=== PATIENT | female | born 1935 | race African-American/Black ===

== ENCOUNTER 2017-10-03 13:39 | Inpatient (IN) | payer MEDICARE, BC ==
[2017-10-03 14:12] LABS: #Basophils 0.1 thou/uL (0.0-0.2); #Eosinphils 0.2 thou/uL (0.0-0.7); #Lymphocytes 2.5 thou/uL (1.20-3.40); #Monocytes 0.5 thou/uL (0.11-0.59); %Basophils 1.7 % (0.0-1.0); %Eosinophils 2.5 % (0.0-10.0); %Lymphocytes 39.9 % (21.0-51.0); %Neutrophils 47.9 % (42.0-75.0); Hemoglobin 11.2 g/dL (12.0-16.0); Mean Corpuscular HGB CONC 31.5 g/dL (32.0-36.0); Mean Corpuscular Hemoglobin 24.1 pg (27.0-31.0); Mean Corpuscular Volume 76.6 fl (81.0-99.0); Mean Platelet Volume 8.7 fL (7.4-10.4); Platelet Count 227 thou/uL (130-400); RBC Distribution Width 14.9 % (11.5-14.5); Red Blood Cell (RBC) Count 4.63 mill/uL (4.20-5.40); White Blood Cell (WBC) Count 6.4 thou/uL (4.8-10.8)
[2017-10-03 14:20] LABS: INR-International Normal Ratio 1.1; PTT 30.4 SEC (22.9-36.1); Prothrombin Time 14.8 SEC (12.0-14.7)
[2017-10-03 14:26] LABS: ALT (SGPT) 15 U/L (8-55); AST (SGOT) 18 U/L (5-34); Albumin 3.6 g/dL (3.4-4.8); Alkaline Phosphatase 78 U/L (40-150); Anion Gap 11 mmol/L (10-20); BUN (Urea Nitrogen) 9 mg/dL (9.8-20.1); Bilirubin, Total 0.5 mg/dL (0.2-1.2); Calc. Creatinine Clearance 0 mL/min (70-130); Calcium 9.4 mg/dL (7.8-10.44); Carbon Dioxide 27 mmol/L (23-31); Chloride 107 mmol/L (98-107); Estimated GFR-MDRD 72; Glucose 135 mg/dL (83-110); Lipase 6 U/L (8-78); Potassium 3.5 mmol/L (3.5-5.1); Protein, Total 6.6 g/dL (6.0-8.3); Sodium 141 mmol/L (136-145)
--- NOTE | 2017-10-03 14:35 | CT ---
NONCONTRAST CT HEAD: Date: 10-03-17 History: Patient fell down flight of stairs and hit head and face on a wall. Patient unconscious upon EMS arrival. Comparison: 12-05-16 FINDINGS: Again noted is mild chronic small vessel ischemic changes and cerebral volume loss. There is a low de nsity area seen in the inferior aspect left basal ganglia which is probably related to volume averagi ng as opposed to a remote infarction or dilated perivascular space. There is no evidence of an acute cortical infarction, hemorrhage, mass effect, or midline shift. Ventricular system is normal in size, shape, and position. No calvarial fracture is seen. Mucosal thickening is present in the left maxillary antrum with mucous retention cyst in the right ma xillary antrum. IMPRESSION: No acute intracranial abnormalities demonstrated. POS: [facility]
--- NOTE | 2017-10-03 14:40 | CT ---
NONCONTRAST CT CERVICAL SPINE: Date: 10-03-17 History: Patient fell down a flight of stairs from a height of approximately 12 feet and hit face and head against wall. Patient was unconscious upon EMS arrival. Technique: Contiguous axial CT images are obtained through the cervical spine from the skull base to the T1-2 level. Sagittal and coronal reformat images are provided. FINDINGS: Multilevel degenerative changes are seen in the cervical spine with narrowing of the intervertebral d isc spaces at the C3-4, C4-5, and C5-6 levels. There is posterior osteophyte formation also present a t these levels resulting in moderate left and severe right sided neural foraminal narrowing at the C3 -4 level, moderate left sided neural foraminal narrowing at the C4-5 level as well as moderate bilate ral neural foraminal narrowing at the C5-6 level related to bony encroachment. No fracture or subluxation is seen involving the cervical spine. The prevertebral soft tissues are within normal limits. Vascular calcifications are seen in the carotid arteries. Visualized lung apices are clear aside from pleural and parenchymal scarring. IMPRESSION: 1. Multilevel degenerative change of the cervical spine without evidence of fracture or subluxation. 2. Above findings discussed with Dr. Johnson from the Emergency Department on 10-03-17 at 1425 hours. F indings concerning CT of the head was also discussed at this time. POS: [facility]
--- NOTE | 2017-10-03 15:18 | CT ---
CT THORAX WITH IV CONTRAST CT ABDOMEN WITH IV CONTRAST CT PELVIS WITH IV CONTRAST CT THORACIC AND LUMBAR SPINE: Date: 10-03-17 History: Patient fell down flight of stairs and hit head on wall with loss of consciousness. Patient complains of back and shoulder pain. FINDINGS: CT THORAX: There is dependent atelectasis bilaterally with linear atelectasis versus scarring in the right middl e lobe. No pneumothorax or pleural effusion is seen. There are nondisplaced fractures involving the left anterolateral 3rd, 4th, and 5th ribs with slight displacement of the fracture involving the left lateral fifth rib. There is questionable subtle nondi splaced fractures of the left lateral 6th and 7th ribs. There are fractures involving the posterior right 11th and 12th ribs. The exact ages of these fractur es are difficult to determine. There is questionable of callus formation. These may represent more re mote fractures. There is a mildly comminuted fracture involving the body and inferior aspect of the left clavicle whi ch is mildly comminuted. There is no evidence of a dislocation left shoulder. There is no evidence of an aortic injury. Vascular calcification seen in the coronary arteries as wel l as involving the thoracic aorta. There is a subcentimeter too small to characterize hypodense nodules in each lobe of the thyroid glan d. CT ABDOMEN AND PELVIS: Post cholecystectomy changes are noted. A few subcentimeter too small to characterize hypodense lesions are seen in the midportion of each ki dney. Kidneys otherwise have a normal CT appearance. The liver, spleen, pancreas, bilateral adrenal glands, and urinary bladder demonstrate a normal CT ap pearance. There is a large heterogeneous mass seen associated with the uterus which measures approximately 6.1 cm x 5.8 cm which may represent a large uterine fibroid. There is an additional irregular calcified m ass also seen just posterior to this region which may represent partially calcified uterine fibroid. There is increased attenuation seen in the expected location of what is thought to be the endometrial canal which is dilated. This is abnormal in a patient of this age. Other etiologies for the mass in the uterus cannot be entirely excluded. Further evaluation with ultrasound is recommended on a non-em ergent basis. There is a 3.4 cm hypodense cystic structure posterior to the uterus as well as a small hypodense cys tic structure in the left adnexal region measuring 2.2 cm which may represent ovarian cystic lesions. There is mild stranding in a presacral location. There is a transverse fracture seen extending throug h the sacrum at the level of the S2 and S3 vertebral bodies with the distal fracture fragment slightl y displaced anteriorly. No additional fracture is seen involving the pelvis. Sacroiliac joints demons trate moderately osteoarthritis but are otherwise symmetric in appearance bilaterally. Patchy calcifications are seen in the abdominal aorta and iliac arteries. There are no findings to gr ggest an aortic injury. No free fluid or free intraperitoneal gas is seen in the abdomen or pelvis. CT THORACIC AND LUMBAR SPINE: There is a mild compression fracture involving the T4 vertebral body which is likely more recent in o rigin although the exact age is difficult to determine. The remaining vertebral body heights are with in normal limits. There are scattered degenerative changes seen, greatest at the lumbosacral junction . IMPRESSION: 1. Heterogeneous mass in the uterus with calcified mass seen posterior to this region as well as an a dditional low density area within the uterus. In addition, there is fluid in the endometrial canal. T his is abnormal in a patient of this age. While findings could be related to uterine fibroids, given the fluid in the endometrial canal, other etiologies for uterine mass such as endometrial carcinoma c annot be excluded. Further evaluation with ultrasound and SALES SUPPORT MANAGER consultation on a non-emergent basis is recommended. 2. Hypodense cystic adnexal structures which may represent ovarian cysts. 3. Fractures involving the left 3rd through 5th ribs with subtle fractures involving the 6th and 7th ribs. 4. Fractures involving the posterior right 11th and 12th ribs which may represent fractures which are more remote in origin. 5. No pneumothorax or pleural effusion. 6. Comminuted fractures involving the left scapula. 7. Mildly displaced and angulated fracture involving the sacrum which involves the S2 and S3 vertebra l bodies. 8. Mild compression fracture of the T4 vertebral body. 9. Mild stranding presacral location. 10. Incidental findings as described. Above findings discussed with Emergency Room physician on 10-03-17 at 1443 hours. POS: [facility]
[2017-10-03] MEDS ORDERED: ISOVUE-370 76%-LOCM 1 ML ONE (16:52)
--- NOTE | 2017-10-03 17:49 | RAD ---
PORTABLE SUPINE CHEST: Date: 10/03/17 HISTORY: Fall. COMPARISON: Chest CT done earlier today. FINDINGS: Heart size appears borderline considering supine technique. The aorta is tortuous. The lungs are linda r of infiltrates. I do not see any signs of pneumothorax on this supine film. Left-sided rib fracture somewhat difficult to visualize. Contrast is seen within the kidneys from the previous CT. IMPRESSION: 1. Mild cardiomegaly. 2. No signs of pneumothorax on this supine film. POS: [facility]
[2017-10-03] MEDS ORDERED: Dextrose 50% Abboject 50 ML SYRINGE SLOW IVP PRN (18:12)
[2017-10-03] MEDS ORDERED: Rib Fracture Protocol PO SCH (18:12)
[2017-10-03] MEDS ORDERED: Dextrose 5% in Water 1,000 ML IV PRN (18:12)
[2017-10-03] MEDS ORDERED: Cyclobenzaprine 10 MG TAB PO PRN (18:15)
[2017-10-03 18:43] LABS: Magnesium 2.2 mg/dL (1.6-2.6)
--- NOTE | 2017-10-03 19:55 | PDOC.EVN ---
Event Note - Event Note Event Note: INSPECTOR HEATING AND REFRIGERATION consultation Patient seen in room 3310 at 1940 Handwritten note also in physical chart. REQUESTED BY DR SANDOVAL Indication: Pelvic CT with suspicion of uterine fibroid and adnexal cyst. HPI: 82 yo AA with past HX uterine fibroids (by her account) fell today down stairs. Pelvic FX found on imaging (Trauma has seen her). She has no HX vaginal bleeding or pelvic pain). x4 Allergies: none Past medical: HX of falls recently with prior evals at [facility] (possible vaso- vagal) Imaging seen Assessment/Plan: asymptomatic uterine mass (likely myoma) with calcification. Trans abdominal pelvic sono ordered to avoid vaginal discomfort with a transvag sono No need for surgical eval at this time as no Vag Bleed Likely follow up as outpatient
[2017-10-03] MEDS: Gabapentin 100 MG CAP PO SCH (22:28)
[2017-10-03] MEDS: Ibuprofen 600 MG TAB PO SCH (22:28)
[2017-10-03] MEDS: Famotidine 20 MG TAB PO SCH (22:28)
--- NOTE | 2017-10-03 23:48 | CON ---
DATE OF CONSULTATION: 10/03/2017 Jeramie Alfaro PA-C dictating for Arturo Larios MD This is a 30-minute initial patient evaluation, which greater than 50% of the exam was spent in couns eling and coordinating patient's care. The remainder of the exam was spent in review of patient's mi dical records and appropriate imaging studies. CHIEF COMPLAINT: Status post fall down 6-7 stairs with T4 compression fracture. HISTORY OF PRESENT ILLNESS: Ms. Carr is a pleasant 82-year-old female who presents to [facility] with the above complaints. Apparently, the patient was carrying some books down from [employer] and slipped, causing her to fall onto her back down the stairs and striking her head. Apparent ly, there was no loss of consciousness. The patient is not on any blood thinners. According to the granddaughter, the patient has had several falls in the past year and they do believe that there may be an underlying memory loss, dementia occurring. The only pain that the patient complains of is lef t scapula and rib pain. She has no neck pain. Review of patient's head CT shows no acute intracrani al hemorrhage or skull fracture. Her cervical spine CT showed stable degenerative spondylitic change s, but otherwise no acute fracture. Review of CT chest, abdomen, and pelvis shows stable T4 compress ion fracture. She also has sacral 2 and sacral 3 fractures that appeared to be nondisplaced. PHYSICAL EXAMINATION: The patient is awake and alert, does sometimes get sleepy during the exam. He r GCS currently is 14 and she does have some confusion, but this may be related to narcotic pain medi cation administration as well as possible concussive syndrome. She is not currently nauseous. She f ollows commands in all 4 extremities, although it is very slow to move the left arm due to her multip le orthopedic injuries on that side. She does have a little bit of difficulty with index finger-to-n ose. Her pupils are equal, round, and reactive and her face is symmetric. She has no pronator drift on the right and this is difficult to assess on the left again due to her injuries. DIAGNOSIS: Anterior column compression fracture, T4 nondisplaced, status post fall. PLAN: Our trauma colleague will admit the patient. From our standpoint, the patient does not requir e any type of neurosurgical intervention at this time. She does need a Clamshell TLSO brace to be wo rn anytime, she is out of bed and once this is fitted, she can mobilize if tolerated. Trauma will co nsult Orthopedics regarding the patient's sacral fractures. Given the fact that there is no intracra nial hemorrhage, I still would like the patient to omit as much narcotic as possible to help with men tation. We will check back on the patient in the morning, but again understand that there is no role for surgical intervention at this point. Please call with any questions or changes in the patient's neurologic status.
--- NOTE | 2017-10-04 00:12 | HP ---
CHIEF COMPLAINT: Fall. HISTORY: This is an 82-year-old female who fell down about 7 to 8 steps in a stairwell, striking her chest and back. She complains of lateral chest wall pain and back pain, no dyspnea. She did have l oss of consciousness. PAST MEDICAL HISTORY: Decreased memory. PAST SURGICAL HISTORY: Laparoscopic cholecystectomy. MEDICATIONS: She is on a probiotic. ALLERGIES: No known drug allergies. SOCIAL HISTORY: She lives with her daughter and son-in-law. No tobacco or alcohol. FAMILY HISTORY: Heart disease. PHYSICAL EXAMINATION: VITAL SIGNS: She is afebrile, pulse 73, blood pressure 113/67, 94% sat. GENERAL: She has slightly confused. She has poor dentition. Her scalp is without lesions. HEENT: Pupils are equal, round, and reactive. Extraocular motor intact. Facial bones intact. NECK: Nontender. Trachea midline. LUNGS: Clear. She is mildly tender over the left clavicle. HEART: Regular rate and rhythm. ABDOMEN: Soft, nondistended, nontender. Pelvis is stable. EXTREMITIES: Unremarkable. IMAGING: She had a CT scan of the head that was normal. CT of C-spine showed degenerative changes, no fractures. CT of the chest, abdomen, and pelvis showed fractured left 3, 4, 5 and probably 6 and 7 ribs and possibly right 11th and 12th ribs. She also has a left clavicle fracture and large mass o f the uterus about 6 x 6 cm with some fluid within the endometrial canal. She also has enlargement o f the ovaries. She has a complex fracture, T4 vertebral body. LABORATORY DATA AND X-RAY FINDINGS: White count is 6.4, H&H 11 and 35, platelet count 227. Electrol ytes are fine. Elevated glucose of 135. ASSESSMENT: Multiple rib fractures, T4 vertebral body fracture, clavicle fracture, and uterine mass. PLAN: CONSULTING SALES MANAGER consult. Admitted for observation.
--- NOTE | 2017-10-04 00:43 | HP ---
DATE OF ADMISSION: 10/03/2017 ADMITTING PHYSICIAN: Dr. Leon Robles. CONSULTING PHYSICIAN: Dr. Marcello Mota, Orthopedics, Dr. Arturo Larios, Neurosurgery, Dr. Jey Muñiz, Gynecology. HISTORY OF PRESENT ILLNESS: Patient is an 82-year-old female who reports that she was ascending the stairway with books in her arm when she slipped and fell backwards down approximately 6-7 stairs landing against the wall. Her family was there with her when she fell and summoned EMS. EMS reported that the patient was unconscious upon their arrival and she regained consciousness en route. The patient complained of back and left shoulder pain. Pain is exacerbated by movement. Pain is relieved by nothing. Patient's family reported to EMS that the patient has had recent syncopal episodes with multiple falls. They also described what they believed to be some sort of progressive dementia. Trauma Services has been consulted to admit and manage patient. Dr. Mota, Orthopedics, has been consulted as well as Dr. Muñiz, CRATING AND MOVING ESTIMATOR, for uterine mass seen on CT scan, and Dr. Larios for spine fractures. PAST MEDICAL HISTORY: There is no past medical history reported by patient or family. PAST SURGICAL HISTORY: Cholecystectomy. SOCIAL HISTORY: Patient lives at home with her granddaughter and family. Denies alcohol, drug or tobacco use. KNOWN ALLERGIES: None. CURRENT MEDICATIONS: None. LABORATORY DATA: CBC: WBC 6.4, RBC 4.63, hemoglobin 11.2, hematocrit 35.5, and platelets 227. Coagulation studies: PT 14.8, INR 1.1. Chemistry: Sodium 141, potassium 3.5, chloride 107, carbon dioxide 27, BUN 9, creatinine 0.9, glucose 135, lactic acid 2.6. DIAGNOSTIC IMAGING: CT chest, abdomen and pelvis identifies multiple left side rib fractures involving left 3rd, 4th, 5th ribs also questionable fractures of 6 and 7th ribs as well as 11th and 12th ribs, left scapula fracture. Uterine mass. S2, S3 vertebral body fractures. A CT thoracic and lumbar spine with T4 vertebral body fractures. REVIEW OF SYSTEMS: Constitutional: The patient denies chills, fever, weight loss or general malaise. HEENT: Negative. Denies complaints. Cardiovascular : Denies chest pain or palpitations. Respiratory: Denies cough, shortness of breath. Gastrointestinal: Denies abdominal pain, diarrhea, nausea, vomiting. Musculoskeletal: Reports left shoulder and upper left back pain. Skin: Denies rash or trauma. Neurologic: Denies headache, seizures, focal weakness or dizziness. PHYSICAL EXAMINATION: VITAL SIGNS: Blood pressure 112/58, pulse 75, respirations 18, temperature 98.5 , O2 sat 94% on 2 liters oxygen. CONSTITUTIONAL: Elderly female lying in bed in no acute distress. HEENT: Atraumatic, normocephalic. Trachea midline. NECK: No JVD. Neck without tenderness. PULMONARY: Bilateral breath sounds clear. Chest movement symmetrical. CARDIOVASCULAR: Regular rate and rhythm. Heart sounds normal. ABDOMEN: Soft, nontender, nondistended. BACK: Pain to the left upper back above scapula. EXTREMITIES: Pain with movement of left upper extremity. Pain is in shoulder. Neurovascularly intact. Cap refill brisk 2+ pulses. NEUROLOGIC: GCS 15. Awake, alert, oriented x3. ASSESSMENT AND PLAN: 1. Fall from height. 2. Left scapular fracture. 3. Thoracic spine T4 fracture. 4. Sacral fracture. 5. Uterine mass identified on CT scan. 6. Acute traumatic pain. 7. Recent history of falls and syncope per family report. PLAN: 1. Admit to surgical floor. 2. We will start rib fracture protocol for analgesia. 3. Pulmonary toilet and incentive spirometry should be encouraged. 4. O2 to keep sats greater than 92%. 5. Daily chest x-ray. 6. Orthopedic consult for sacral and scapular fracture. 7. Neurosurgical consult for T-spine fracture. 8. Gynecology consult for uterine mass. 9. EKG is pending at this time. We will follow up. The patient was reviewed with Dr. Robles who agrees with the plan. This is Rosita Venegas, nurse practitioner, dictating history and physical for Dr. Leon Robles. [facility]
[2017-10-04] MEDS: traMADol HCl 50 MG TAB PO SCH ×4 (00:53→17:12)
[2017-10-04] MEDS: Acetaminophen 500 MG TAB PO SCH ×5 (00:53→23:53)
[2017-10-04 03:33] VITALS: BMI 23.4
[2017-10-04 04:58] LABS: #Basophils 0.1 thou/uL (0.0-0.2); #Lymphocytes 0.8 thou/uL (1.20-3.40); #Monocytes 0.4 thou/uL (0.11-0.59); #Neutrophils 8.2 thou/uL (1.40-6.50); %Basophils 0.6 % (0.0-1.0); %Eosinophils 0.3 % (0.0-10.0); %Lymphocytes 8.7 % (21.0-51.0); %Monocytes 4.4 % (0.0-10.0); Hemoglobin 11.6 g/dL (12.0-16.0); Mean Corpuscular HGB CONC 30.8 g/dL (32.0-36.0); Mean Corpuscular Hemoglobin 23.9 pg (27.0-31.0); Mean Corpuscular Volume 77.5 fl (81.0-99.0); Mean Platelet Volume 10.1 fL (7.4-10.4); Platelet Count 175 thou/uL (130-400); RBC Distribution Width 15.1 % (11.5-14.5); Red Blood Cell (RBC) Count 4.87 mill/uL (4.20-5.40); White Blood Cell (WBC) Count 9.5 thou/uL (4.8-10.8)
[2017-10-04 05:36] LABS: Anion Gap 16 mmol/L (10-20); BUN (Urea Nitrogen) 18 mg/dL (9.8-20.1); Calc. Creatinine Clearance 42 mL/min (70-130); Calcium 9.3 mg/dL (7.8-10.44); Carbon Dioxide 19 mmol/L (23-31); Chloride 108 mmol/L (98-107); Estimated GFR-MDRD 59; Glucose 135 mg/dL (83-110); Potassium 4.1 mmol/L (3.5-5.1); Sodium 139 mmol/L (136-145)
[2017-10-04 06:05] LABS: Lactic Acid 3.8 mmol/L (0.5-2.2)
[2017-10-04] MEDS: Ibuprofen 600 MG TAB PO SCH ×3 (06:35→22:20)
[2017-10-04] MEDS ORDERED: Hydrocortisone Sod Succ/PF 100 mg/2 ml Vial IVP SCH (08:00)
[2017-10-04] MEDS: Gabapentin 100 MG CAP PO SCH ×3 (08:20→22:20)
[2017-10-04] MEDS: Famotidine 20 MG TAB PO SCH ×2 (08:20→22:20)
--- NOTE | 2017-10-04 09:27 | RAD ---
RADIOGRAPH CHEST 1 VIEW: Date: 10/04/17 Time: 0759 HOURS HISTORY: 82-year-old female status post acute thoracic traumatic injury. Follow-up. COMPARISON: 10/03/17 at 1735 hours. FINDINGS: Displaced fracture of lateral aspect of left fifth rib. New finding of diffuse left-sided hazy, inter stitial densities. No gross consolidation. Ectasia and tortuosity of thoracic aorta. This is a supine image, which would be insensitive for pneumothorax detection. Diffuse prominence of pulmonary vascul ature, which could be due to the supine positioning. IMPRESSION: 1. One of the several known acute, traumatic, displaced left rib fractures demonstrated on the CT, i s demonstrated on this plain chest radiograph. 2. Apparent interval change of appearance of left lung with diffusely mildly increased attenuation. This could be technical, due to positional differences (patient is now rotated to the right). Follow- up is recommended. 3. Ectasia and tortuosity of the thoracic aorta. JN [] POS: [facility]
--- NOTE | 2017-10-04 09:50 | PRG ---
DATE OF SERVICE: 10/04/2017 This is a 30 minute initial hospital visit note in which 30 minutes were spent reviewing the imaging, record, evaluation and examination of the patient, and formulation of a plan. Greater than 50% was spent on counseling. I reviewed the notes of my colleague Jeramie Alfaro PA-C, and agree with its content. Ms. Carr is an 82-year-old woman who fell down the stairs and hit her head, loss of consciousness. Cranial spin al imaging was negative except for a T4 anterior middle column fracture with preserved alignment. Th ere is also evidence of a left clavicle fracture and mid to lower sacral fractures. She has been adm itted for further evaluation. On exam this morning, she opens her eyes to voice and follows commands in all 4 extremities, moving her fingers and lifting her arms partially off of the bed and wiggling her toes. IMPRESSION AND PLAN: We will plan to brace her T4 fracture with a TLSO when out of bed. With her ri b fractures this may be problematic. I would not recommend any surgical intervention. DIAGNOSES: T4 fracture status post fall.
--- NOTE | 2017-10-04 11:45 | ULT ---
TRANSABDOMINAL PELVIC ULTRASOUND: (Zhong scale, color flow, and spectral Doppler) Date: 10/04/17 HISTORY: Uterine fibroid. FINDINGS: The uterus measures 12.0 x 6.5 x 8.2 cm. There is a 6.7 x 5.9 x 4.9 cm mass consistent with fibroid. The endometrium is not satisfactorily visualized to be measured. The right ovary measures 3.8 x 2.7 x 3.6 cm. The left ovary measures 3.1 x 2.3 x 2.5 cm. There is a 2 .2 cm cyst in the right ovary and a 1.4 cm cyst in the left ovary. Flow is demonstrated to both ovari es. There is complex fluid in the cervix measuring 1.5 x 4.5 cm. Echogenic debris is present within t he urinary bladder. IMPRESSION: 1. Uterine fibroid. 2. Complex fluid in the cervix. Gynecologic consultation is recommended. 3. Echogenic debris is present in the urinary bladder. Correlation with urinalysis is recommended. POS: [facility]
--- NOTE | 2017-10-04 12:26 | PRG-2 ---
DATE OF SERVICE: 10/04/2017 ATTENDING PHYSICIAN: John Morrison SUBJECTIVE: This is an 82-year-old female status post fall down the stairs one day ago. After discu ssing further with the patient from time of admission as far as what specifically happened at the [facility] [place], apparently the patient was walking upstairs while carrying books, someone behind her called out fo r her. She turned to look behind her. While walking upstairs and this resulted in missing a step an d then falling. Patient did not experience a syncopal episode at the time of the fall, although she does have a history of syncopal falls that have been worked up extensively previously and were previo usly determined to be vasovagal in nature. This fall resulted in a left scapular fracture, a T4 frac ture, a sacral fracture and multiple rib fractures on the left that were identified on CT. Overnight , the patient did have a low blood pressure, as low as 52/34. At that time her heart rate was 63. I n between 0740 this morning and 0815 serial blood pressures were all in the 50s/30s with heart rates in the mid 60s. Since then, her blood pressure has recovered, most recently being 102/64. OBJECTIVE: VITAL SIGNS: Blood pressure 102/64, temperature 98.2, pulse 67, respiratory rate 20, O2 sat 96% on 2 liters nasal cannula. CONSTITUTIONAL: This is an 82-year-old lying in bed, appropriately interactive, in no acute distress . HEENT: Atraumatic, normocephalic. NECK: Trachea is midline. PULMONARY: Bilateral breath sounds are symmetrical. CARDIOVASCULAR: Regular rate and rhythm. ABDOMEN: Soft, nontender. BACK: Tender over the known area of fracture on the left scapula and thoracic spine. EXTREMITIES: Pain movement with left upper extremity, pain is in the shoulder, otherwise the patient is neurovascularly intact in all 4 extremities. NEUROLOGIC: GCS 15, alert and oriented x3. No changes in vision. ASSESSMENT: 1. Status post fall from height, resulting in a left scapular fracture, sacral fracture, T4 fracture , multiple rib fractures. 2. Uterine mass identified on CT. 3. Acute traumatic pain. 4. Hypotension. 5. History of falls. PLAN: 1. Fractures do not appear to be surgical in nature. We will work to control pain. Neurosurgery is going to be fitting her for a TLSO and then we will work on PT at that time. 2. Uterine mass noted on CT. Dr. Muñiz MERCHANDISING PROFESSOR has been consulted. Does not think that there is an y acute need for surgery due to the fact that there is no blood loss and instructed the patient to fo llow up outpatient. 4. Hypotension. Given that the heart rate remains low even with low blood pressure, this is consist ent with a previous diagnosis of vasovagal with falls. The patient will need to follow up with Cardi ology for further management. DISCHARGE PLANNING: The patient will likely be appropriate for rehab. We will have the patient eval uated and then considered this for discharge likely in the next 2 days.
--- NOTE | 2017-10-04 15:09 | CON ---
DATE OF CONSULTATION: 10/04/2017 REASON FOR CONSULTATION: Syncope. REFERRING PROVIDER: Dr. Larios. HISTORY OF PRESENT ILLNESS: Ms. Carr is an 82-year-old woman who recently had a syncopal episode. Upon my interview, she states she slipped and fell, but the family convinced that she had a true syn copal episode. This was witnessed. The witness was not in the room during my discussion. She denie s chest pain, pressure or other associated symptoms. She has had syncope in the past. She was evalu ated by Dr. Juan Carlos Zhong and Dr. Pola Mauro, with no known etiology. She has worn a 3-week event rec order with no significant dysrhythmias. This appeared to occur abruptly. No chest pain, pressure, s hortness of breath. No previous history of underlying coronary disease. PAST MEDICAL HISTORY: As above. HOME MEDICATIONS: None. ALLERGIES: None. SOCIAL HISTORY: No current tobacco or alcohol use. FAMILY HISTORY: Positive for CAD. REVIEW OF SYSTEMS: Ten-point review of systems is reviewed and is as above negative. PHYSICAL EXAMINATION: GENERAL: Patient is a pleasant female who is in no acute distress. The patient appears her stated a ge. VITAL SIGNS: Blood pressure 106/70, pulse 65 and temperature is 98.3. NEUROLOGIC: The patient is alert and oriented x3 with no focal neurologic deficits. HEENT: Sclerae without icterus. Mouth has moist mucous membranes with normal pallor. NECK: No JVD. Carotid upstroke brisk. No bruits bilaterally. LUNGS: Clear to auscultation with unlabored respirations. BACK: No scoliosis or kyphosis. CARDIAC: Regular rate and rhythm with normal S1 and S2. No S3 or S4 noted. No significant rubs, mu rmurs, thrills, or gallops noted throughout the precordium. PMI is not displaced. There is no criss ternal heave. ABDOMEN: Soft, nontender, nondistended. No peritoneal signs present. No hepatosplenomegaly. No ab normal striae. EXTREMITIES: 2+ femoral and 2+ dorsalis pedis pulses. No cyanosis, clubbing, or edema. SKIN: No gross abnormalities. LABORATORY AND X-RAY FINDINGS: EKG: Normal sinus rhythm with ST-T wave changes suggesting ischemia. When compared to previous EKGs, this appears new. IMPRESSION: 1. Syncope. 2. Left scapular fracture, sacral fracture, T4 fracture and multiple rib fractures. 3. Hypotension, now resolved. RECOMMENDATIONS: From a CV standpoint, would recommend a noninvasive stress study due to new EKG shannon nges. This is likely due to a demand. I would also recommend an echo Doppler to assess LV function. Prior to discharge, recommend an implantable loop recorder given this is recurrent with significant trauma.
--- NOTE | 2017-10-04 16:35 | CON ---
DATE OF CONSULTATION: 10/03/2017 HISTORY OF PRESENT ILLNESS: Ms. Carr is an 82-year-old female who was going up some stairs with meseret oks in her arm. She slipped and fell backward approximately 6-7 stairs, landed against a wall. The patient was brought to the emergency room where x-rays showed fracture involving the left 3rd, 4th, a nd 5th ribs and nondisplaced fracture involving the 6th and 7th ribs on the left, also fractures in t he posterior right 11th and 12th ribs and a comminuted fracture involving the left scapula, fracture of the sacrum and mild compression fracture at T4 vertebral body. I was consulted for the fracture o f the scapula. PAST MEDICAL HISTORY: No medical illnesses. PAST SURGICAL HISTORY: Cholecystectomy. MEDICATIONS: No current medication. ALLERGIES: None. PHYSICAL EXAMINATION: GENERAL: The patient is a pleasant female, alert and oriented x3. VITAL SIGNS: Blood pressure 118/62, pulse 74 and respiratory rate 18. Patient is afebrile. HEENT: Unremarkable for age. Cranial nerves II through XII are grossly intact. NECK: Has good range of motion without pain. MUSCULOSKELETAL: The patient is tender over the posterior aspect of the left scapula and a tense mov ement of the left arm causes pain in the scapula. She is nontender over the clavicle. There is no s welling over the clavicle. Left upper extremity is neurovascularly intact. The patient has good ran ge of motion of the right upper extremity and both lower extremities without pain. IMPRESSION: 1. Fracture of left scapula, overall alignment of the fractures are good. 2. Fractures 3rd through 7th ribs on the left and fractures of the posterior 11th and 12th ribs on t he right. 3. Sacral fracture. PLAN: No surgical intervention is needed for the left scapula fracture. She can use an arm sling to help support the left upper extremity. She will follow up with me in the next 2-3 weeks.
[2017-10-05] MEDS: traMADol HCl 50 MG TAB PO SCH ×5 (01:38→23:11)
[2017-10-05] MEDS: Ibuprofen 600 MG TAB PO SCH ×3 (06:11→22:25)
[2017-10-05] MEDS: Acetaminophen 500 MG TAB PO SCH ×4 (06:11→20:05)
[2017-10-05] MEDS: Famotidine 20 MG TAB PO SCH ×2 (08:27→20:05)
[2017-10-05] MEDS: Gabapentin 100 MG CAP PO SCH ×3 (08:28→20:06)
--- NOTE | 2017-10-05 08:54 | PRG ---
DATE OF SERVICE: 10/05/2017 HISTORY OF PRESENT ILLNESS: The patient is an 82-year-old female admitted to the hospital after a fa ll and had an incidental finding on CT scan of what appeared to be uterine fibroid. A pelvic ultraso und was ordered to better characterize what was seen. Ultrasound demonstrated a mass within the uter us measuring 6.7 x 5.9 x 4.9 cm consistent with a fibroid and otherwise normal appearing ovaries. Th e patient had no complaints of vaginal bleeding. There is no indication at this time for further inp atient management of this finding and would recommend followup with her [employer] on an outpatient [facility].
--- NOTE | 2017-10-05 09:18 | PRG ---
DATE OF SERVICE: 10/05/2017 Ms. Carr is doing well, no current complaints. PHYSICAL EXAMINATION: VITAL SIGNS: Blood pressure 108/60, pulse 76, temperature 97.9. LUNGS: Clear to auscultation. HEART: Regular rate and rhythm. ABDOMEN: Soft, nontender, nondistended. EXTREMITIES: No edema. IMPRESSION: 1. Syncope. 2. Abnormal EKG. RECOMMENDATIONS: The patient is scheduled for a non-invasive stress study today. If felt to be nega tive for ischemia or low risk, would continue medical therapy. I also recommend an implantable loop recorder and discussed the risks with Ms. Carr. The risks included but not limited the following: Bleeding, bruising, infection, need for removal in addition to pneumothorax. After discussing the dianna warner she has agreed to proceed with the above procedure. This will be scheduled for today.
[2017-10-05] MEDS ORDERED: Lidocaine 1% w/Epinephrine 1:200K 30 ML VIAL ONE (11:24)
--- NOTE | 2017-10-05 11:29 | PRG-2 ---
DATE OF SERVICE: 10/05/2017 ATTENDING PHYSICIAN: Dr. John Morrison SUBJECTIVE: This is an 82-year-old female status post fall down 2 stairs 2 days ago. The fall resul bar in a left scapular fracture, T4 fracture, sacral fracture, multiple rib fractures. Given the pat ient's heart history Cardiology has been consulted and they will be performing an echo and a stress t est today. Additionally, [facility] is following the patient due to a uterine mass. It was recommended that the patient follow up outpatient as there is no current bleeding or acute need for surgery. The re were no acute events overnight. OBJECTIVE: VITAL SIGNS: Temperature 97.1, pulse 76, respiratory rate 16, O2 sat 95% on 2 liters nasal cannula. GENERAL: This is an 82-year-old female lying in bed, appropriately interactive in no acute distress. HEENT: Atraumatic, normocephalic. PULMONARY: Bilateral breath sounds clear to auscultation. CARDIOVASCULAR: Regular rate and rhythm. ABDOMEN: Soft, nontender. EXTREMITIES: Neurovascularly intact in all 4 extremities, significant pain with motion of left upper extremity. NEUROLOGIC: GCS of 15. Alert and oriented x3. No changes in vision. ASSESSMENT: 1. Status post fall from height, resulting in a left scapular fracture, sacral fracture, T4 fracture and multiple rib fractures. 2. Uterine mass. 3. Acute traumatic pain. 4. Hypotension. PLAN: 1. Fractures are not surgical. We will continue to manage pain. The patient was fitted with a TLSO and is working with PT. 2. Uterine mass. Continue plan for outpatient follow up as above. 3. Hypotension. The patient has been normotensive for the past 24 hours. Continue to monitor vital s. 4. Discharge planning. Pending recommendations from Cardiology after her stress and echo, will like ly discharge the patient to SNF or rehab. This patient was seen and examined by Dr. John Morrison who agrees with the above assessment and plan .
[2017-10-05] MEDS ORDERED: Regadenoson 0.4 MG/5 ML SYRINGE ONE (11:34)
--- NOTE | 2017-10-05 12:11 | NM ---
CARDIAC SPECT: HISTORY: An 82-year-old black female with preoperative evaluation. Family history of coronary artery disease. TECHNIQUE: A myocardial perfusion scan was performed using the single isotope one day protocol with technetium 9 9m sestamibi, and 10 millicuries was injected intravenously for the rest exam, followed by 30 millicu niko for the stress study. Pharmacologic stress with Lexiscan was monitored and interpreted by Dr. Shaun rodriguez. FINDINGS: Homogeneous tracer distribution is seen in the myocardial segments on stress and rest images without fixed or reversible defects. GATED SPECT LVEF: 80% WALL MOTION EXAM: Normal. IMPRESSION: Normal myocardial perfusion scan. POS: NICK
--- NOTE | 2017-10-06 00:42 | PRG ---
DATE OF SERVICE: 10/05/2017 SUBJECTIVE: This is an 82-year-old female status post fall with left scapular fracture, T4 fracture, sacral fracture, rib fractures. The patient is now working with PT and OT. Pain has been controlle d via p.o. analgesics. She did have a stress test, which was normal per Cardiology. Echo results ar e still pending. Upon my evaluation, the patient is resting in bed this evening with no complaints. OBJECTIVE: VITAL SIGNS: Reviewed and stable. GENERAL: The patient is resting in bed, in no acute distress on nasal cannula. ASSESSMENT AND PLAN: As documented in daily progress note. Continue care as ordered. Continue to m onitor. Continue PT/OT. Continue pulmonary toileting. Outpatient followup as directed by day shift ing. Followup echo results.
[2017-10-06] MEDS: traMADol HCl 50 MG TAB PO SCH ×3 (05:52→17:24)
[2017-10-06] MEDS: Acetaminophen 500 MG TAB PO SCH ×3 (06:35→17:24)
[2017-10-06] MEDS: Ibuprofen 600 MG TAB PO SCH ×3 (06:35→21:10)
[2017-10-06] MEDS ORDERED: Docusate 100 MG CAP PO SCH (09:00)
[2017-10-06] MEDS: Polyethylene Glycol 3350 17 GM Packet PO SCH (09:20)
[2017-10-06] MEDS: Enoxaparin Sodium 40 MG/0.4 ML SYRINGE SC SCH (09:20)
[2017-10-06] MEDS: Famotidine 20 MG TAB PO SCH ×2 (09:20→21:10)
[2017-10-06] MEDS: Senokot 8.6 MG TAB PO SCH (09:20)
[2017-10-06] MEDS: Gabapentin 100 MG CAP PO SCH ×3 (09:20→21:10)
--- NOTE | 2017-10-06 11:43 | PRG-2 ---
DATE OF SERVICE: 10/06/2017 ATTENDING PHYSICIAN: Dr. John Morrison SUBJECTIVE: This is an 82-year-old female status post fall down two stairs 3 days ago. Resulting in juries include left scapular fracture, T4 fracture, sacral fracture and multiple rib fractures. The patient additionally has a history of a vasovagal syndrome associated with falls that was previously worked up. Since admitted, Cardiology has been consulted. A stress test was completed yesterday whi ch was negative and a loop recorder was placed as well. The patient additionally has a known uterine mass which has been seen by OB. No intervention is currently recommended in the inpatient setting. Since yesterday, the patient has not been out of the bed. PT is coming today. There have been no a cute events overnight. OBJECTIVE: VITAL SIGNS: Temperature 97.7, pulse 83, respiratory rate 18, O2 sat 96% on 2 liters and blood press ure 100/63. GENERAL: The patient is lying in bed comfortably in no acute distress. She is somewhat confused in that she currently thinks that it is night instead of morning. HEENT: Atraumatic, normocephalic. PULMONARY: Bilateral breath sounds clear to auscultation. CARDIOVASCULAR: Regular rate and rhythm. ABDOMEN: Soft, tender. EXTREMITIES: Neurovascular intact. She is able to move all 4 extremities. NEUROLOGIC: GCS of 15. No focal neurological deficits. ASSESSMENT: 1. Status post fall from height, resulting in multiple fractures. 2. History of falls. 3. Hypotension. 4. Uterine mass. 5. Acute traumatic pain. PLAN: 1. Continue PT with TLSO. The patient will have a PT evaluation pending today. We will likely have the patient discharged to rehab facility within the next day. 2. Pain is currently controlled. Continue current pain management. 3. Uterine mass, outpatient follow up with OB as above. 4. Hypotension and history of falls. Cardiology has seen the patient. A loop recorder has been ilan sadie as above. Follow up further recommendations outpatient. DISCHARGE PLANNING: Pending PT evaluation today, will likely discharge tomorrow.
--- NOTE | 2017-10-06 22:29 | PRG ---
DATE OF SERVICE: 10/06/2017 SUBJECTIVE: This is an 82-year-old female status post fall with multiple fractures. Upon my evaluat ion, the patient vocalized no complaints. She was seen by physical therapy earlier today. Final dis position is pending. OBJECTIVE: VITAL SIGNS: Reviewed and stable. GENERAL: The patient is resting in bed with eyes closed and appears comfortable, in no acute distres s. Breathing is nonlabored. ASSESSMENT AND PLAN: As documented in daily progress note. Continue care as ordered. Continue to m onitor. Continue PT, OT. Await eventual disposition.
[2017-10-07] MEDS: Acetaminophen 500 MG TAB PO SCH ×2 (00:55→06:42)
[2017-10-07] MEDS: traMADol HCl 50 MG TAB PO SCH ×2 (00:55→05:49)
[2017-10-07] MEDS: Ibuprofen 600 MG TAB PO SCH (06:43)
[2017-10-07] MEDS ORDERED: Melatonin 3 MG TAB PO PRN (07:27)
--- NOTE | 2017-10-07 08:02 | PRG ---
DATE OF SERVICE: 10/07/2017 Ms. Carr was able to get out of bed yesterday. This is excellent news. She tolerated her brace. We will arrange followup in my clinic in 6 weeks with thoracic x-rays.
[2017-10-07] MEDS ORDERED: Docusate Sodium 100 MG/10 ML UDCUP PER TUBE SCH (09:00)
[2017-10-07] MEDS ORDERED: Bisacodyl 10 MG SUPP PR SCH (09:00)
[2017-10-07] MEDS: Polyethylene Glycol 3350 17 GM Packet PO SCH (09:06)
[2017-10-07] MEDS: Famotidine 20 MG TAB PO SCH (09:06)
[2017-10-07] MEDS: Enoxaparin Sodium 40 MG/0.4 ML SYRINGE SC SCH (09:06)
[2017-10-07] MEDS: Senokot 8.6 MG TAB PO SCH (09:06)
[2017-10-07 11:34] VITALS: BP 97/66; TEMP 98
[2017-10-07] MEDS ORDERED: Acetaminophen 650 MG/20.3 ML UDCUP PER TUBE SCH (12:00)
[2017-10-07] MEDS ORDERED: traMADol HCl 50 MG TAB PO PRN (12:00)
[2017-10-07] MEDS ORDERED: Ibuprofen 100 MG/5 ML UDCUP PO SCH (14:00)
--- NOTE | 2017-10-08 00:06 | DIS ---
DATE OF ADMISSION: 10/03/2017 DATE OF DISCHARGE: 10/07/2017 ADMITTING PHYSICIAN: Leon Robles M.D. DISCHARGING PHYSICIAN: John Morrison D.O. CHIEF COMPLAINT: Multiple traumatic injuries status post fall down stairs. HOSPITAL COURSE: The patient is an 82-year-old female who has ascending stairways in her home when s he slipped and fell backwards, falling down approximately 6 to 7 stairs and landing against the wall. EMS reported that the patient was unconscious upon their arrival and she regained consciousness en route to the [facility]. Per family member reports at that time, the patient has had multiple syn copal episodes recently. The family also described what they believed to be some sort of progressive dementia. Imaging findings obtained in the ER showed a mild compression fracture of the T4 vertebra l body, mildly displaced and angulated fractures involving the sacrum, comminuted fractures involving the left scapula, multiple rib fractures, as well as an incidentally discovered large uterine mass. Dr. Mota in Orthopedics was consulted as well as Dr. Larios in Neurosurgery. Dr. Jey galo s also consulted for outpatient followup for the large uterine mass. Her orthopedic injuries were de termined to be nonoperative, and she was transferred to the floor for management of pain and for phys ical and occupational therapy and anticipation of transferring to rehabilitation. After being evalua bar by physical therapy, she was determined to be a good candidate for rehabilitation and was dischar ged to rehabilitation on 10/07/2017 in stable condition. DISCHARGE MEDICATIONS: The patient was discharged to rehab at all of her inpatient medications. ACTIVITY ORDERS: The patient is to wear her TLSO brace when ambulating. THERAPY ORDERS: Include PT and OT as directed at rehabilitation. DIETARY INSTRUCTIONS: The patient is on a regular diet. FOLLOWUP INSTRUCTIONS: The patient is to follow up with Dr. Jey Muñiz in [facility] for the uterine m ass. The patient is also to follow up with Dr. Larios in 6 weeks. The patient is to follow up with Dr. Morrison in 14 days. The patient is to follow up with Dr. Armendariz in 14 days as well.
--- NOTE | 2017-11-01 11:24 | STRESS ---
Acquisition Time: 2017-10-05 09:13:45 Total Exercise Time: 00:01:00 Test Indications: PRE-OP Medications: Protocol: LEXISCAN Max HR: 079 BPM 58% of Pred: 136 BPM Max BP: 110/068 mmHG Max Work Load: 1.0 METS RESTING ECG: NORMAL SINUS RHYTHM AT 63 BPM WITH INTRAVENTICULAR CONDUCTION DELAY. SYMPTOMS: SHORTNESS OF BREATH NORMAL BP RESPONSE ECTOPY: NONE ECG STRESS: NO SIGNIFICANT CHANGES INTERPRETATION: AWAIT NUCLEAR IMAGES FOR DEFINITIVE DIAGNOSIS Confirmed by CECI SPANN ([id number]), copy editor CLEMENTINA PIKE ([id number]) on 11/01/2017 11:24:15 AM Referred By: MD Manuel KAYE Confirmed By:CECI SPANN
--- NOTE | 2017-12-03 21:38 | EKG ---
Test Reason : Blood Pressure : / mmHG Vent. Rate : 085 BPM Atrial Rate : 085 BPM P-R Int : 164 ms QRS Dur : 084 ms QT Int : 426 ms P-R-T Axes : 047 -20 226 degrees QTc Int : 506 ms Normal sinus rhythm Prolonged QT Abnormal ECG Confirmed by ARGELIA KAYE MD ([id number]) on 12/03/2017 9:37:41 PM Referred By: LORI Confirmed By:ARGELIA KAYE MD
== END 2017-10-07 14:05 | DRG 982 ==
LOC: ERS 13:39 → SJJU 16:00 → SURG A 10-05 19:39
PROVIDERS: ADMIT Surgery; ATTEND Surgery
PROC: 0JH632Z Insertion of Monitoring Device into Chest Subcutaneous Tissue and Fascia, Percutaneous Approach (ICD-10-PCS; principal; 2017-10-05)
DX: S22.42XA Multiple fractures of ribs, left side, initial encounter for closed fracture (principal); S22.049A Unspecified fracture of fourth thoracic vertebra, initial encounter for closed fracture; I95.9 Hypotension, unspecified; S32.10XA Unspecified fracture of sacrum, initial encounter for closed fracture; S42.102A Fracture of unspecified part of scapula, left shoulder, initial encounter for closed fracture; W10.9XXA Fall (on) (from) unspecified stairs and steps, initial encounter; Z91.81 History of falling; Y92.019 Unspecified place in single-family (private) house as the place of occurrence of the external cause; N85.9 Noninflammatory disorder of uterus, unspecified; G89.11 Acute pain due to trauma; R55 Syncope and collapse
CPT/HCPCS: 33282; 36415; 70450; 71045; 71260; 72125; 74177; 76856; 78452; 80048; 80053; 82533; 83605; 83690; 83735; 84100; 85025; 85610; 85730; 86850; 86900; 86901; 93005; 93010; 93017; 93306; 94640; 96361; 96374; A9500; C1764; G0390; G8978-GP-CN; G8979-GP-CL; G8987-GO-CL; G8988-GO-CJ; J1650; J1720; J2270; J2785; J7620; L0639

== ENCOUNTER 2021-09-08 17:54 | Inpatient (IN) | payer BC, MEDICARE, OTHER ==
[2021-09-08 18:50] LABS: #Lymphocytes 0.6 thou/uL (1.20-3.40); #Monocytes 0.4 thou/uL (0.11-0.59); #Neutrophils 3.9 thou/uL (1.40-6.50); %Basophils 0.7 % (0.0-1.0); %Eosinophils 0.1 % (0.0-10.0); %Lymphocytes 11.7 % (21.0-51.0); %Monocytes 7.9 % (0.0-10.0); %Neutrophils 79.6 % (42.0-75.0); Hemoglobin 10.4 g/dL (12.0-16.0); Mean Corpuscular HGB CONC 32.3 g/dL (32.0-36.0); Mean Corpuscular Hemoglobin 24.3 pg (27.0-31.0); Mean Corpuscular Volume 75.1 fL (78.0-98.0); Mean Platelet Volume 8.9 fL (7.4-10.4); Platelet Count 164 thou/uL (130-400); RBC Distribution Width 14.9 % (11.5-14.5); White Blood Cell (WBC) Count 4.9 thou/uL (4.8-10.8)
[2021-09-08 19:05] LABS: ALT (SGPT) Less than 7 U/L (8-55); AST (SGOT) 13 U/L (5-34); Albumin 3.8 g/dL (3.4-4.8); Alkaline Phosphatase 77 U/L (40-110); Anion Gap 14 mmol/L (10-20); BUN (Urea Nitrogen) 12 mg/dL (9.8-20.1); Bilirubin, Total 0.3 mg/dL (0.2-1.2); CK (CPK) 85 U/L (29-168); Calc. Creatinine Clearance 0 mL/min (70-130); Calcium 9.1 mg/dL (7.8-10.44); Carbon Dioxide 24 mmol/L (23-31); Chloride 100 mmol/L (98-107); Globulin 2.8 g/dL (2.4-3.5); Glucose 157 mg/dL (83-110); Potassium 3.9 mmol/L (3.5-5.1); Protein, Total 6.6 g/dL (5.8-8.1); Sodium 134 mmol/L (136-145)
[2021-09-08] MEDS ORDERED: Fentanyl 100 MCG/2 ML VIAL ONE (19:34)
[2021-09-08 20:10] LABS: Bilirubin Negative (Negative); Blood, Urine Negative (Negative); Clarity Clear (Clear); Glucose, Urine (Dipstick) Normal (Negative); Ketone, Urine Negative (Negative); Leukocyte Negative Leu/uL (Negative); Nitrite Negative (Negative); Protein, Urine (Dipstick) 10 mg/dL (Neg-Trace); Specific Gravity, Urine 1.014 (1.002-1.036)
[2021-09-08] MEDS ORDERED: Dextrose 5% in Water 1,000 ML IV PRN (20:14)
[2021-09-08] MEDS ORDERED: Ondansetron PF 4 MG/2 ML Vial IVP PRN (20:14)
[2021-09-08] MEDS ORDERED: Dextrose 50% Abboject 50 ML SYRINGE SLOW IVP PRN (20:14)
[2021-09-08] MEDS ORDERED: hydrALAZINE 20 MG/ML VIAL SLOW IVP PRN (20:14)
[2021-09-08] MEDS ORDERED: Sodium Chloride 0.9% 1,000 ML IV SCH (20:15)
[2021-09-08] MEDS ORDERED: Cyclobenzaprine 10 MG TAB PO PRN (20:18)
[2021-09-08] MEDS ORDERED: traMADol HCl 50 MG TAB PO PRN ×2 (20:18)
[2021-09-08] MEDS ORDERED: Acetaminophen 500 MG TAB PO SCH (20:30)
[2021-09-08] MEDS ORDERED: Morphine 4 MG/ML VIAL SLOW IVP PRN (20:39)
[2021-09-08 20:44] LABS: Phosphorus 3.3 mg/dL (2.3-4.7)
[2021-09-08] MEDS ORDERED: Sodium Phosphate 15 MMOL in Sodium Chloride 0.9% 250 ML 250 ML IVPB SCH (22:00)
[2021-09-09] MEDS: Senokot S 8.6-50 MG TAB PO SCH ×3 (01:00→20:47)
[2021-09-09] MEDS: Ibuprofen 200 MG TAB PO SCH ×4 (01:06→23:28)
[2021-09-09] MEDS: Acetaminophen 500 MG TAB PO SCH ×3 (01:18→20:47)
[2021-09-09] MEDS ORDERED: Famotidine 20 MG TAB PO SCH (09:00)
[2021-09-09] MEDS ORDERED: CEFAZOLIN IVPB SCH (09:15)
[2021-09-09] MEDS ORDERED: DEXTROSE IVPB SCH (09:15)
[2021-09-09 09:37] LABS: #Lymphocytes 0.9 thou/uL (1.20-3.40); #Monocytes 0.6 thou/uL (0.11-0.59); %Basophils 0.3 % (0.0-1.0); %Eosinophils 0.1 % (0.0-10.0); %Lymphocytes 20.5 % (21.0-51.0); %Monocytes 12.7 % (0.0-10.0); %Neutrophils 66.5 % (42.0-75.0); Hemoglobin 10.5 g/dL (12.0-16.0); Mean Corpuscular HGB CONC 32.1 g/dL (32.0-36.0); Mean Corpuscular Hemoglobin 24.2 pg (27.0-31.0); Mean Corpuscular Volume 75.2 fL (78.0-98.0); Mean Platelet Volume 9.9 fL (7.4-10.4); Platelet Count 142 thou/uL (130-400); Red Blood Cell (RBC) Count 4.32 mill/uL (4.20-5.40); White Blood Cell (WBC) Count 4.4 thou/uL (4.8-10.8)
[2021-09-09 09:55] LABS: Anion Gap 12 mmol/L (10-20); BUN (Urea Nitrogen) 8 mg/dL (9.8-20.1); Calc. Creatinine Clearance 0 mL/min (70-130); Calcium 9.1 mg/dL (7.8-10.44); Carbon Dioxide 26 mmol/L (23-31); Chloride 99 mmol/L (98-107); Glucose 119 mg/dL (83-110); Phosphorus 3.2 mg/dL (2.3-4.7); Potassium 3.7 mmol/L (3.5-5.1); Sodium 133 mmol/L (136-145)
[2021-09-09 11:03] LABS: SARS-CoV-2 NAA Rapid Test DETECTED (NotDetected)
[2021-09-09] MEDS ORDERED: Dexmedetomidine 200 MCG/2 ML VIAL ONE (12:20)
[2021-09-09] MEDS ORDERED: Fentanyl 100 MCG/2 ML VIAL ONE (12:20)
[2021-09-09] MEDS ORDERED: Glycopyrrolate 0.2 MG/ML 5 ML SYRINGE ONE (13:05)
[2021-09-09] MEDS ORDERED: Dexamethasone 20 MG/5 ML VIAL ONE (13:05)
[2021-09-09] MEDS ORDERED: ePHEDrine 50 MG/ML VIAL ONE (13:05)
[2021-09-09] MEDS ORDERED: Lidocaine 1% PF 5 ML VIAL ONE (13:05)
[2021-09-09] MEDS ORDERED: PHENYLEPHRINE-NS 100 MCG/ML 10 ML SYRINGE ONE ×2 (13:05→16:27)
[2021-09-09] MEDS ORDERED: Rocuronium Bromide 10 MG/ML (10ML VIAL) ONE (13:05)
[2021-09-09] MEDS ORDERED: PROPOFOL 200 MG/20 ML VIAL ONE (13:05)
[2021-09-09] MEDS ORDERED: Ondansetron PF 4 MG/2 ML Vial ONE (13:05)
[2021-09-09] MEDS ORDERED: Promethazine HCl 25 MG/ML VIAL IVPB PRN (14:26)
[2021-09-09] MEDS ORDERED: Promethazine HCl 25 MG/ML VIAL IM PRN (14:26)
[2021-09-09] MEDS ORDERED: Ondansetron HCl/PF 4 MG/2 ML Vial IVP PRN (14:26)
[2021-09-09] MEDS ORDERED: ePHEDrine Sulfate 50 MG/10 ML VIAL ONE (16:27)
[2021-09-09] MEDS ORDERED: DOPamine 400 MG/D5W 250 ML 250 ML ONE (16:42)
[2021-09-09] MEDS ORDERED: Atropine Sulfate 1 mg/10 ml Syringe ONE (17:01)
[2021-09-09] MEDS ORDERED: Atropine Sulfate 1 mg/10 ml Syringe IVP PRN (18:23)
[2021-09-09] MEDS ORDERED: DOPamine 400 MG/D5W 250 ML 250 ML IVPB SCH (18:30)
[2021-09-09] MEDS: Polyethylene Glycol 3350 17 GM Packet PO SCH (20:42)
[2021-09-09 20:55] VITALS: BMI 20.9
[2021-09-09] MEDS ORDERED: CEFAZOLIN 1 GM in Sodium Chloride 0.9% 100 ML IVPB SCH (22:00)
[2021-09-10] MEDS: ceFAZolin 1 GM/D5W 1 GM in Premix Bag 1 BAG IVPB SCH ×3 (00:03→14:10)
[2021-09-10] MEDS: Acetaminophen 500 MG TAB PO SCH ×2 (00:11→06:12)
[2021-09-10] MEDS: Ibuprofen 200 MG TAB PO SCH (06:12)
[2021-09-10 07:07] LABS: #Lymphocytes 0.9 thou/uL (1.20-3.40); #Monocytes 0.8 thou/uL (0.11-0.59); #Neutrophils 4.7 thou/uL (1.40-6.50); %Lymphocytes 13.6 % (21.0-51.0); %Monocytes 12.6 % (0.0-10.0); %Neutrophils 73.8 % (42.0-75.0); Hemoglobin 9.9 g/dL (12.0-16.0); Mean Corpuscular HGB CONC 31.7 g/dL (32.0-36.0); Mean Corpuscular Hemoglobin 23.8 pg (27.0-31.0); Mean Platelet Volume 9.4 fL (7.4-10.4); Platelet Count 133 thou/uL (130-400); RBC Distribution Width 14.8 % (11.5-14.5); Red Blood Cell (RBC) Count 4.16 mill/uL (4.20-5.40); White Blood Cell (WBC) Count 6.4 thou/uL (4.8-10.8)
[2021-09-10 07:26] LABS: Anion Gap 13 mmol/L (10-20); BUN (Urea Nitrogen) 11 mg/dL (9.8-20.1); Calc. Creatinine Clearance 48 mL/min (70-130); Calcium 9.1 mg/dL (7.8-10.44); Carbon Dioxide 24 mmol/L (23-31); Chloride 101 mmol/L (98-107); Glucose 126 mg/dL (83-110); MDiff Complete? YES; Magnesium 1.9 mg/dL (1.6-2.6); Microcytosis SLIGHT = 6-15 cells (100X) (0-5/hpf); Phosphorus 3.1 mg/dL (2.3-4.7); Platelet Morphology Comment Appears Adequate; Polychromasia SLIGHT = 2-3 cells (100X) (0-2/hpf); Potassium 3.8 mmol/L (3.5-5.1); Sodium 134 mmol/L (136-145)
[2021-09-10] MEDS ORDERED: Ibuprofen 200 MG TAB PO PRN (07:35)
[2021-09-10] MEDS ORDERED: Magnesium Sulfate 3 GM in Sodium Chloride 0.9% 100 ML IV SCH (07:45)
[2021-09-10] MEDS ORDERED: Potassium Phosphate 15 MMOL in Sodium Chloride 0.9% 100 ML IVPB SCH (07:45)
[2021-09-10] MEDS ORDERED: POTASSIUM PHOSPHATE IVPB SCH ×2 (08:30)
[2021-09-10] MEDS ORDERED: MAGNESIUM SULFATE IVPB SCH (08:30)
[2021-09-10] MEDS ORDERED: MAGNESIUM IVPB SCH (08:30)
[2021-09-10] MEDS ORDERED: SODIUM CHLORIDE 0.9% IVPB SCH ×2 (08:30)
[2021-09-10] MEDS ORDERED: DOPamine 400 MG/D5W 250 ML 250 ML IVPB SCH (08:45)
[2021-09-10] MEDS ORDERED: FLU VACC QS2021-22(65YR UP)/PF 240 MCG/0.7 ML SYRINGE IM ONE (09:00)
[2021-09-10] MEDS: Polyethylene Glycol 3350 17 GM Packet PO SCH (09:08)
[2021-09-10] MEDS: Senokot S 8.6-50 MG TAB PO SCH ×2 (09:08→21:43)
[2021-09-10] MEDS: Acetaminophen 325 MG TAB PO SCH ×3 (09:13→21:44)
[2021-09-10] MEDS ORDERED: Calcium Chloride 1 GM/10 ML Abboject SYRINGE IVP SCH (11:15)
[2021-09-10] MEDS ORDERED: Hydrocortisone Sod Succ/PF 100 mg/2 ml Vial IVP SCH ×2 (11:15→14:00)
[2021-09-10] MEDS ORDERED: Calcium Chloride 13.6 MEQ in Sodium Chloride 0.9% 100 ML IVPB SCH (11:30)
[2021-09-10] MEDS ORDERED: Sodium Chloride 0.9% 500 ML IV SCH (16:15)
[2021-09-10] MEDS: Amlodipine 5 MG TAB PO SCH (16:26)
[2021-09-10] MEDS ORDERED: Amlodipine 10 MG TAB PO SCH ×3 (17:00)
[2021-09-10] MEDS: Citalopram 10 MG TAB PO SCH (21:44)
[2021-09-10] MEDS ORDERED: D5 0.9% NS w/ 20 mEq KCl 1,000 ML IV SCH (22:00)
[2021-09-11] MEDS: Acetaminophen 325 MG TAB PO SCH ×4 (01:22→20:51)
[2021-09-11 07:32] LABS: Anion Gap 14 mmol/L (10-20); BUN (Urea Nitrogen) 14 mg/dL (9.8-20.1); Calc. Creatinine Clearance 52 mL/min (70-130); Calcium 8.5 mg/dL (7.8-10.44); Carbon Dioxide 19 mmol/L (23-31); Chloride 106 mmol/L (98-107); Glucose 117 mg/dL (83-110); Magnesium 2.6 mg/dL (1.6-2.6); Phosphorus 2.5 mg/dL (2.3-4.7); Potassium 4.4 mmol/L (3.5-5.1); Sodium 135 mmol/L (136-145)
[2021-09-11 07:50] LABS: #Lymphocytes 1.2 thou/uL (1.20-3.40); #Monocytes 0.8 thou/uL (0.11-0.59); #Neutrophils 4.3 thou/uL (1.40-6.50); %Basophils 0.2 % (0.0-1.0); %Monocytes 12.5 % (0.0-10.0); %Neutrophils 68.3 % (42.0-75.0); Hemoglobin 8.8 g/dL (12.0-16.0); Mean Corpuscular HGB CONC 31.6 g/dL (32.0-36.0); Mean Corpuscular Hemoglobin 23.9 pg (27.0-31.0); Mean Corpuscular Volume 75.7 fL (78.0-98.0); Mean Platelet Volume 9.5 fL (7.4-10.4); Platelet Count 120 thou/uL (130-400); RBC Distribution Width 14.8 % (11.5-14.5); Red Blood Cell (RBC) Count 3.68 mill/uL (4.20-5.40); White Blood Cell (WBC) Count 6.3 thou/uL (4.8-10.8)
[2021-09-11] MEDS: Senokot S 8.6-50 MG TAB PO SCH ×2 (09:10→20:50)
[2021-09-11] MEDS: Polyethylene Glycol 3350 17 GM Packet PO SCH (09:12)
[2021-09-11] MEDS: Aspirin 81 mg Enteric Coated Tablet PO SCH ×2 (09:17→20:51)
[2021-09-11] MEDS ORDERED: Iopamidol 370 76% 50 ML VIAL FS ONE (09:23)
[2021-09-11] MEDS: Acetaminophen/Codeine 30-300mg Tablet PO PRN (10:41)
[2021-09-11] MEDS ORDERED: ceFAZolin 2 GM/DEX 5% 100 ML BAG ONE (12:28)
[2021-09-11] MEDS ORDERED: Lidocaine 1% (PF) 30 ML VIAL ONE ×2 (12:28→12:29)
[2021-09-11] MEDS ORDERED: CEFAZOLIN 1 GM VIAL ONE ×2 (12:28→13:45)
[2021-09-11] MEDS ORDERED: Gentamicin 80 MG/2 ML VIAL ONE ×2 (12:28→13:45)
[2021-09-11] MEDS ORDERED: Vancomycin 1.5 GRAM/300 ML BAG 1.5 GM in Premix Bag 1 BAG IVPB SCH (13:00)
[2021-09-11] MEDS ORDERED: Vancomycin HCl 500 MG VIAL ONE (13:21)
[2021-09-11] MEDS ORDERED: Vancomycin 1 GM/200 ML BAG ONE ×2 (13:48)
[2021-09-11] MEDS ORDERED: Lidocaine 1% w/Epinephrine 1:100K 20 ML VIAL ONE (14:27)
[2021-09-11] MEDS: Amlodipine 5 MG TAB PO SCH (16:52)
[2021-09-11] MEDS: Citalopram 10 MG TAB PO SCH (20:50)
[2021-09-12] MEDS: Acetaminophen 325 MG TAB PO SCH ×4 (02:05→21:03)
[2021-09-12] MEDS: Polyethylene Glycol 3350 17 GM Packet PO SCH (09:56)
[2021-09-12] MEDS: Senokot S 8.6-50 MG TAB PO SCH ×2 (09:56→21:02)
[2021-09-12] MEDS: Aspirin 81 mg Enteric Coated Tablet PO SCH ×2 (09:57→21:03)
[2021-09-12] MEDS: Amlodipine 5 MG TAB PO SCH (18:21)
[2021-09-12] MEDS: Citalopram 10 MG TAB PO SCH (21:03)
[2021-09-13] MEDS: Acetaminophen 325 MG TAB PO SCH ×4 (02:04→21:24)
[2021-09-13] MEDS: Polyethylene Glycol 3350 17 GM Packet PO SCH (08:46)
[2021-09-13] MEDS: Senokot S 8.6-50 MG TAB PO SCH ×2 (08:47→21:24)
[2021-09-13] MEDS: Aspirin 81 mg Enteric Coated Tablet PO SCH ×2 (08:48→21:24)
[2021-09-13 08:54] LABS: #Lymphocytes 1.3 thou/uL (1.20-3.40); #Monocytes 0.4 thou/uL (0.11-0.59); #Neutrophils 3.7 thou/uL (1.40-6.50); %Basophils 0.2 % (0.0-1.0); %Eosinophils 0.9 % (0.0-10.0); %Lymphocytes 24.6 % (21.0-51.0); %Monocytes 6.9 % (0.0-10.0); %Neutrophils 67.5 % (42.0-75.0); Hemoglobin 9.3 g/dL (12.0-16.0); Mean Corpuscular HGB CONC 31.7 g/dL (32.0-36.0); Mean Corpuscular Hemoglobin 24.4 pg (27.0-31.0); Mean Corpuscular Volume 77.1 fL (78.0-98.0); Mean Platelet Volume 9.5 fL (7.4-10.4); Platelet Count 141 thou/uL (130-400); RBC Distribution Width 14.6 % (11.5-14.5); Red Blood Cell (RBC) Count 3.81 mill/uL (4.20-5.40); White Blood Cell (WBC) Count 5.4 thou/uL (4.8-10.8)
[2021-09-13 09:12] LABS: Anion Gap 11 mmol/L (10-20); BUN (Urea Nitrogen) 13 mg/dL (9.8-20.1); Calc. Creatinine Clearance 54 mL/min (70-130); Calcium 8.9 mg/dL (7.8-10.44); Carbon Dioxide 26 mmol/L (23-31); Chloride 103 mmol/L (98-107); Glucose 105 mg/dL (83-110); Magnesium 2.2 mg/dL (1.6-2.6); Sodium 136 mmol/L (136-145)
[2021-09-13] MEDS: Amlodipine 5 MG TAB PO SCH (17:30)
[2021-09-13] MEDS: Citalopram 10 MG TAB PO SCH (21:24)
[2021-09-14] MEDS: Acetaminophen 325 MG TAB PO SCH ×4 (03:19→20:55)
[2021-09-14] MEDS: Polyethylene Glycol 3350 17 GM Packet PO SCH (08:30)
[2021-09-14] MEDS: Senokot S 8.6-50 MG TAB PO SCH ×2 (08:33→20:55)
[2021-09-14] MEDS: Aspirin 81 mg Enteric Coated Tablet PO SCH ×2 (08:33→20:55)
[2021-09-14] MEDS: Amlodipine 5 MG TAB PO SCH (16:36)
[2021-09-14] MEDS: Citalopram 10 MG TAB PO SCH (20:55)
[2021-09-15] MEDS: Acetaminophen 325 MG TAB PO SCH ×4 (02:39→21:37)
[2021-09-15] MEDS: Senokot S 8.6-50 MG TAB PO SCH ×2 (08:09→21:40)
[2021-09-15] MEDS: Polyethylene Glycol 3350 17 GM Packet PO SCH (08:09)
[2021-09-15] MEDS: Aspirin 81 mg Enteric Coated Tablet PO SCH ×2 (08:09→21:38)
[2021-09-15] MEDS: Amlodipine 5 MG TAB PO SCH (16:07)
[2021-09-15] MEDS: Citalopram 10 MG TAB PO SCH (21:38)
[2021-09-15] MEDS: Acetaminophen/Codeine 30-300mg Tablet PO PRN (21:39)
[2021-09-16] MEDS: Acetaminophen 325 MG TAB PO SCH ×4 (02:29→20:20)
[2021-09-16] MEDS: Aspirin 81 mg Enteric Coated Tablet PO SCH ×2 (08:07→20:20)
[2021-09-16] MEDS: Senokot S 8.6-50 MG TAB PO SCH ×2 (08:07→20:20)
[2021-09-16] MEDS: Polyethylene Glycol 3350 17 GM Packet PO SCH (08:07)
[2021-09-16 11:41] LABS: SARS-CoV-2 PCR by NAA DETECTED (NotDetected)
[2021-09-16] MEDS: Amlodipine 5 MG TAB PO SCH (17:39)
[2021-09-16] MEDS: Acetaminophen/Codeine 30-300mg Tablet PO PRN (20:20)
[2021-09-16] MEDS: Citalopram 10 MG TAB PO SCH (20:21)
[2021-09-17] MEDS: Acetaminophen 325 MG TAB PO SCH ×2 (03:08→08:38)
[2021-09-17] MEDS: Senokot S 8.6-50 MG TAB PO SCH (08:37)
[2021-09-17] MEDS: Polyethylene Glycol 3350 17 GM Packet PO SCH (08:37)
[2021-09-17] MEDS: Aspirin 81 mg Enteric Coated Tablet PO SCH (08:37)
[2021-09-17 11:51] VITALS: BP 133/67; TEMP 97.9
== END 2021-09-17 13:00 | DRG 480 ==
LOC: ERS 17:54 → ERHOLD 20:18 → SURG A 09-09 13:00 → 2SE 09-09 18:53 → 2SW 09-10 20:19 → SJJU 09-12 16:15
PROVIDERS: ADMIT Specialist; ATTEND Surgery
PROC: 0QS604Z Reposition Right Upper Femur with Internal Fixation Device, Open Approach (ICD-10-PCS; principal; 2021-09-09)
PROC: 0JH606Z Insertion of Pacemaker, Dual Chamber into Chest Subcutaneous Tissue and Fascia, Open Approach (ICD-10-PCS; 2021-09-11)
PROC: 02H63JZ Insertion of Pacemaker Lead into Right Atrium, Percutaneous Approach (ICD-10-PCS; 2021-09-11)
PROC: 02HK3JZ Insertion of Pacemaker Lead into Right Ventricle, Percutaneous Approach (ICD-10-PCS; 2021-09-11)
PROC: 0JPT32Z Removal of Monitoring Device from Trunk Subcutaneous Tissue and Fascia, Percutaneous Approach (ICD-10-PCS; 2021-09-11)
DX: S72.141A Displaced intertrochanteric fracture of right femur, initial encounter for closed fracture (principal); U07.1 COVID-19; F03.90 Unspecified dementia, unspecified severity, without behavioral disturbance, psychotic disturbance, mood disturbance, and anxiety; I10 Essential (primary) hypertension; I48.0 Paroxysmal atrial fibrillation; R00.1 Bradycardia, unspecified; I95.9 Hypotension, unspecified; E78.5 Hyperlipidemia, unspecified; W18.30XA Fall on same level, unspecified, initial encounter; Z90.49 Acquired absence of other specified parts of digestive tract; I49.5 Sick sinus syndrome; Z95.818 Presence of other cardiac implants and grafts; Z87.440 Personal history of urinary (tract) infections; Y92.009 Unspecified place in unspecified non-institutional (private) residence as the place of occurrence of the external cause
CPT/HCPCS: 33208; 33249; 33286; 36415; 70450; 71045; 72125; 72170; 76000; 80048; 80053; 81003; 82533; 82550; 83605; 83735; 84100; 84484; 85025; 87086; 93005; 93010; 93306; 96374; C1713; C1785; C1898; G0390; J0461; J0690; J1100; J1265; J1580; J1720; J2001; J2405; J2704; J3010; J3370; J3475; J3480; J3490; J7030; J7050; Q9967; U0002; U0003; U0005

== ENCOUNTER 2021-12-17 22:12 | Inpatient (IN) | payer OTHER, MEDICARE ==
[2021-12-17 22:54] LABS: #Lymphocytes 1.5 thou/uL (1.20-3.40); #Monocytes 0.6 thou/uL (0.11-0.59); #Neutrophils 7.8 thou/uL (1.40-6.50); %Eosinophils 0.4 % (0.0-10.0); %Lymphocytes 15.2 % (21.0-51.0); %Monocytes 6.1 % (0.0-10.0); %Neutrophils 78.2 % (42.0-75.0); Hemoglobin 10.4 g/dL (12.0-16.0); Mean Corpuscular HGB CONC 31.3 g/dL (32.0-36.0); Mean Corpuscular Hemoglobin 24.6 pg (27.0-31.0); Mean Corpuscular Volume 78.6 fL (78.0-98.0); Mean Platelet Volume 9.7 fL (7.4-10.4); Platelet Count 204 thou/uL (130-400); RBC Distribution Width 15.4 % (11.5-14.5); Red Blood Cell (RBC) Count 4.24 mill/uL (4.20-5.40)
[2021-12-17 23:14] LABS: ALT (SGPT) 14 U/L (8-55); AST (SGOT) 18 U/L (5-34); Albumin 3.7 g/dL (3.4-4.8); Alkaline Phosphatase 80 U/L (40-110); Anion Gap 16 mmol/L (10-20); BUN (Urea Nitrogen) 22 mg/dL (9.8-20.1); Bilirubin, Total 0.3 mg/dL (0.2-1.2); Calc. Creatinine Clearance 0 mL/min (70-130); Calcium 9.4 mg/dL (7.8-10.44); Carbon Dioxide 22 mmol/L (23-31); Chloride 111 mmol/L (98-107); Globulin 2.9 g/dL (2.4-3.5); Glucose 134 mg/dL (83-110); Potassium 3.6 mmol/L (3.5-5.1); Protein, Total 6.6 g/dL (5.8-8.1); Sodium 145 mmol/L (136-145)
[2021-12-18 00:23] LABS: Bacteria/HPF 3+ HPF (None Seen); Bilirubin Negative (Negative); Blood, Urine Negative (Negative); Clarity Turbid (Clear); Glucose, Urine (Dipstick) Normal (Negative); Ketone, Urine Negative (Negative); Leukocyte 500 Leu/uL (Negative); Nitrite 2+ (Negative); Protein, Urine (Dipstick) 20 mg/dL (Neg-Trace); RBC/HPF 0-3 HPF (0-3); Specific Gravity, Urine 1.017 (1.002-1.036); Urobilinogen Normal mg/dL (Less than 2); WBC/HPF Greater than 50 HPF (0-3)
[2021-12-18] MEDS ORDERED: Silver Sulfadiazine 50 GM TUBE TOP SCH (01:10)
[2021-12-18] MEDS ORDERED: Acetaminophen 325 MG TAB PO PRN (02:15)
[2021-12-18 03:14] VITALS: BMI 19.8
[2021-12-18] MEDS: Sodium Chloride 0.9% 1,000 ML IV SCH ×2 (05:27→17:10)
[2021-12-18] MEDS: cefTRIAXone\\ROCEPHIN 1 GM in Sodium Chloride 0.9% 100 ML IVPB SCH (05:27)
[2021-12-18] MEDS ORDERED: Senokot S 8.6-50 MG TAB PO PRN (08:08)
[2021-12-18] MEDS ORDERED: Acetaminophen 650 MG Suppository PR PRN (08:08)
[2021-12-18] MEDS ORDERED: Bisacodyl 5 MG TAB PO PRN (08:08)
[2021-12-18] MEDS: Aspirin 81 mg Enteric Coated Tablet PO SCH (08:36)
[2021-12-18] MEDS ORDERED: hydrALAZINE 20 MG/ML VIAL SLOW IVP PRN (09:56)
[2021-12-18] MEDS ORDERED: HYDROcodone/Acetaminophen 5/325 mg Tablet PO PRN (09:56)
[2021-12-18 09:59] LABS: Magnesium 2.1 mg/dL (1.6-2.6)
[2021-12-18 12:20] LABS: SARS-CoV-2 PCR by NAA Not Detected (NotDetected)
[2021-12-18] MEDS: Amlodipine 10 MG TAB PO SCH (17:10)
[2021-12-18] MEDS: Citalopram 10 MG TAB PO SCH (20:25)
[2021-12-18] MEDS: Donepezil HCl 10 MG TAB PO SCH (20:25)
[2021-12-19] MEDS: Sodium Chloride 0.9% 1,000 ML IV SCH (05:19)
[2021-12-19] MEDS: cefTRIAXone\\ROCEPHIN 1 GM in Sodium Chloride 0.9% 100 ML IVPB SCH (05:19)
[2021-12-19 08:38] LABS: #Eosinphils 0.2 thou/uL (0.0-0.7); #Lymphocytes 1.3 thou/uL (1.20-3.40); #Monocytes 0.5 thou/uL (0.11-0.59); #Neutrophils 5.3 thou/uL (1.40-6.50); %Basophils 0.4 % (0.0-1.0); %Eosinophils 2.7 % (0.0-10.0); %Lymphocytes 17.8 % (21.0-51.0); %Monocytes 7.1 % (0.0-10.0); %Neutrophils 72.1 % (42.0-75.0); Mean Corpuscular HGB CONC 31.5 g/dL (32.0-36.0); Mean Corpuscular Hemoglobin 24.9 pg (27.0-31.0); Mean Corpuscular Volume 78.9 fL (78.0-98.0); Mean Platelet Volume 9.9 fL (7.4-10.4); Platelet Count 168 thou/uL (130-400); RBC Distribution Width 15.3 % (11.5-14.5); Red Blood Cell (RBC) Count 4.04 mill/uL (4.20-5.40); White Blood Cell (WBC) Count 7.4 thou/uL (4.8-10.8)
[2021-12-19 09:00] LABS: ALT (SGPT) 14 U/L (8-55); AST (SGOT) 21 U/L (5-34); Albumin 3.6 g/dL (3.4-4.8); Alkaline Phosphatase 77 U/L (40-110); Anion Gap 15 mmol/L (10-20); BUN (Urea Nitrogen) 10 mg/dL (9.8-20.1); Bilirubin, Total 0.5 mg/dL (0.2-1.2); Calc. Creatinine Clearance 45 mL/min (70-130); Calcium 9.2 mg/dL (7.8-10.44); Carbon Dioxide 24 mmol/L (23-31); Chloride 109 mmol/L (98-107); Globulin 3.1 g/dL (2.4-3.5); Glucose 111 mg/dL (83-110); Potassium 3.2 mmol/L (3.5-5.1); Protein, Total 6.7 g/dL (5.8-8.1); Sodium 145 mmol/L (136-145)
[2021-12-19] MEDS ORDERED: Potassium Chloride 20 MEQ TAB PO SCH (13:30)
[2021-12-19] MEDS ORDERED: Electrolyte Replacement Protocol FS PRN (13:30)
[2021-12-19] MEDS ORDERED: Electrolyte Replacement Protocol 1 EACH FS SCH (13:30)
[2021-12-19] MEDS: Aspirin 81 mg Enteric Coated Tablet PO SCH (13:33)
[2021-12-19] MEDS: Amlodipine 10 MG TAB PO SCH (19:13)
[2021-12-19] MEDS: Citalopram 10 MG TAB PO SCH (20:48)
[2021-12-19] MEDS: Donepezil HCl 10 MG TAB PO SCH (20:48)
[2021-12-20] MEDS: cefTRIAXone\\ROCEPHIN 1 GM in Sodium Chloride 0.9% 100 ML IVPB SCH (04:53)
[2021-12-20 06:15] LABS: #Eosinphils 0.2 thou/uL (0.0-0.7); #Lymphocytes 1.3 thou/uL (1.20-3.40); #Monocytes 0.6 thou/uL (0.11-0.59); #Neutrophils 4.7 thou/uL (1.40-6.50); %Basophils 0.2 % (0.0-1.0); %Eosinophils 3.6 % (0.0-10.0); %Lymphocytes 18.7 % (21.0-51.0); %Monocytes 9.1 % (0.0-10.0); %Neutrophils 68.5 % (42.0-75.0); Hemoglobin 9.3 g/dL (12.0-16.0); Mean Corpuscular HGB CONC 31.9 g/dL (32.0-36.0); Mean Corpuscular Volume 78.1 fL (78.0-98.0); Mean Platelet Volume 10.2 fL (7.4-10.4); Platelet Count 165 thou/uL (130-400); RBC Distribution Width 15.4 % (11.5-14.5); Red Blood Cell (RBC) Count 3.73 mill/uL (4.20-5.40); White Blood Cell (WBC) Count 6.9 thou/uL (4.8-10.8)
[2021-12-20 06:33] LABS: Anion Gap 13 mmol/L (10-20); BUN (Urea Nitrogen) 12 mg/dL (9.8-20.1); Calc. Creatinine Clearance 39 mL/min (70-130); Calcium 9.1 mg/dL (7.8-10.44); Carbon Dioxide 24 mmol/L (23-31); Chloride 108 mmol/L (98-107); Glucose 109 mg/dL (83-110); Magnesium 1.9 mg/dL (1.6-2.6); Potassium 3.7 mmol/L (3.5-5.1); Sodium 141 mmol/L (136-145)
[2021-12-20] MEDS ORDERED: Magnesium 2 GM/50 ML(in water) 2 GM in Premix Bag 1 BAG IVPB SCH (07:00)
[2021-12-20] MEDS: Aspirin 81 mg Enteric Coated Tablet PO SCH (08:35)
[2021-12-20] MEDS ORDERED: Amlodipine 10 MG TAB PO SCH (10:04)
[2021-12-20] MEDS ORDERED: Ondansetron PF 4 MG/2 ML Vial IVP PRN (13:12)
[2021-12-20] MEDS ORDERED: Amlodipine 5 MG TAB PO SCH (17:00)
[2021-12-20] MEDS: Donepezil HCl 10 MG TAB PO SCH (20:40)
[2021-12-20] MEDS: Citalopram 10 MG TAB PO SCH (20:40)
[2021-12-21] MEDS: cefTRIAXone\\ROCEPHIN 1 GM in Sodium Chloride 0.9% 100 ML IVPB SCH (04:31)
[2021-12-21 06:49] LABS: #Basophils 0.1 thou/uL (0.0-0.2); #Eosinphils 0.2 thou/uL (0.0-0.7); #Lymphocytes 1.4 thou/uL (1.20-3.40); #Monocytes 0.7 thou/uL (0.11-0.59); %Basophils 1.5 % (0.0-1.0); %Eosinophils 3.1 % (0.0-10.0); %Lymphocytes 19.3 % (21.0-51.0); %Monocytes 9.3 % (0.0-10.0); %Neutrophils 66.8 % (42.0-75.0); Hemoglobin 10.4 g/dL (12.0-16.0); Mean Corpuscular HGB CONC 31.7 g/dL (32.0-36.0); Mean Corpuscular Hemoglobin 24.6 pg (27.0-31.0); Mean Corpuscular Volume 77.6 fL (78.0-98.0); Mean Platelet Volume 10.5 fL (7.4-10.4); Platelet Count 184 thou/uL (130-400); RBC Distribution Width 15.1 % (11.5-14.5); Red Blood Cell (RBC) Count 4.21 mill/uL (4.20-5.40); White Blood Cell (WBC) Count 7.5 thou/uL (4.8-10.8)
[2021-12-21 07:05] LABS: Anion Gap 12 mmol/L (10-20); BUN (Urea Nitrogen) 12 mg/dL (9.8-20.1); Calc. Creatinine Clearance 45 mL/min (70-130); Calcium 9.2 mg/dL (7.8-10.44); Carbon Dioxide 26 mmol/L (23-31); Chloride 105 mmol/L (98-107); Glucose 109 mg/dL (83-110); Potassium 3.8 mmol/L (3.5-5.1); Sodium 139 mmol/L (136-145)
[2021-12-21 07:13] LABS: ALT (SGPT) 17 U/L (8-55); AST (SGOT) 16 U/L (5-34); Albumin 3.5 g/dL (3.4-4.8); Alkaline Phosphatase 75 U/L (40-110); Bilirubin, Direct 0.2 mg/dL (0.1-0.3); Bilirubin, Total 0.4 mg/dL (0.2-1.2); Protein, Total 6.9 g/dL (5.8-8.1)
[2021-12-21] MEDS: Aspirin 81 mg Enteric Coated Tablet PO SCH (08:09)
[2021-12-21] MEDS: Citalopram 10 MG TAB PO SCH (20:37)
[2021-12-21] MEDS: Donepezil HCl 10 MG TAB PO SCH (20:37)
[2021-12-22] MEDS: cefTRIAXone\\ROCEPHIN 1 GM in Sodium Chloride 0.9% 100 ML IVPB SCH (05:30)
[2021-12-22 06:34] LABS: Reticulocyte Count 1.1 % (0.5-1.5)
[2021-12-22] MEDS: Aspirin 81 mg Enteric Coated Tablet PO SCH (07:51)
[2021-12-22] MEDS: Donepezil HCl 10 MG TAB PO SCH (20:14)
[2021-12-22] MEDS: Citalopram 10 MG TAB PO SCH (20:14)
[2021-12-23] MEDS: cefTRIAXone\\ROCEPHIN 1 GM in Sodium Chloride 0.9% 100 ML IVPB SCH (05:03)
[2021-12-23] MEDS: Enoxaparin Sodium 40 MG/0.4 ML SYRINGE SC SCH (08:49)
[2021-12-23] MEDS: Aspirin 81 mg Enteric Coated Tablet PO SCH (08:49)
[2021-12-23] MEDS: Donepezil HCl 10 MG TAB PO SCH (21:14)
[2021-12-23] MEDS: Citalopram 10 MG TAB PO SCH (21:14)
[2021-12-24] MEDS: cefTRIAXone\\ROCEPHIN 1 GM in Sodium Chloride 0.9% 100 ML IVPB SCH (04:53)
[2021-12-24 08:16] VITALS: BP 146/73; TEMP 98
[2021-12-24] MEDS: Aspirin 81 mg Enteric Coated Tablet PO SCH (08:49)
[2021-12-24] MEDS: Enoxaparin Sodium 40 MG/0.4 ML SYRINGE SC SCH (08:49)
== END 2021-12-24 18:45 | DRG 689 ==
LOC: ERS 22:12 → T4-B 12-18 01:00 → OBSVTOIN 12-19 11:27
PROVIDERS: ADMIT Student in an Organized Health Care Education/Training Program; ATTEND Internal Medicine
PROC: 4B02XSZ Measurement of Cardiac Pacemaker, External Approach (ICD-10-PCS; principal; 2021-12-20)
DX: N39.0 Urinary tract infection, site not specified (principal); G93.41 Metabolic encephalopathy; S32.591A Other specified fracture of right pubis, initial encounter for closed fracture; R55 Syncope and collapse; Z20.822 Contact with and (suspected) exposure to COVID-19; F03.90 Unspecified dementia, unspecified severity, without behavioral disturbance, psychotic disturbance, mood disturbance, and anxiety; I49.5 Sick sinus syndrome; F32.A Depression, unspecified; I10 Essential (primary) hypertension; R13.10 Dysphagia, unspecified; W18.30XA Fall on same level, unspecified, initial encounter; E78.5 Hyperlipidemia, unspecified; Z28.21 Immunization not carried out because of patient refusal; Z95.0 Presence of cardiac pacemaker; Z87.440 Personal history of urinary (tract) infections; Z79.899 Other long term (current) drug therapy; Z79.82 Long term (current) use of aspirin; Z90.49 Acquired absence of other specified parts of digestive tract; Z98.890 Other specified postprocedural states; Y92.003 Bedroom of unspecified non-institutional (private) residence as the place of occurrence of the external cause
CPT/HCPCS: 36415; 51701; 70450; 71045; 72170; 80048; 80053; 80076; 81003; 81015; 82728; 83540; 83735; 83880; 84484; 85025; 85046; 93005; 96374; 96376; G0378; J0696; J1650; J3475; J3490; J7050; U0003; U0005

== ENCOUNTER 2022-05-01 10:30 | Emergency (ER) | payer MEDICARE ==
[2022-05-01 11:02] LABS: Bacteria/HPF 3+ HPF (None Seen); Bilirubin Negative (Negative); Blood, Urine Trace (Negative); Clarity Turbid (Clear); Glucose, Urine (Dipstick) Normal (Negative); Ketone, Urine Negative (Negative); Leukocyte 500 Leu/uL (Negative); Nitrite Negative (Negative); Protein, Urine (Dipstick) 30 mg/dL (Neg-Trace); Specific Gravity, Urine 1.022 (1.002-1.036); Urobilinogen Normal mg/dL (Less than 2); WBC/HPF Greater than 50 HPF (0-3); pH, Urine 5.5 (5.0-9.0)
[2022-05-01 11:27] LABS: #Eosinphils 0.2 thou/uL (0.0-0.7); #Lymphocytes 1.7 thou/uL (1.20-3.40); #Monocytes 0.4 thou/uL (0.11-0.59); #Neutrophils 2.4 thou/uL (1.40-6.50); %Basophils 0.6 % (0.0-1.0); %Eosinophils 4.6 % (0.0-10.0); %Lymphocytes 35.9 % (21.0-51.0); %Monocytes 7.8 % (0.0-10.0); %Neutrophils 51.2 % (42.0-75.0); Hemoglobin 10.8 g/dL (12.0-16.0); Mean Corpuscular HGB CONC 30.9 g/dL (32.0-36.0); Mean Corpuscular Volume 77.7 fL (78.0-98.0); Mean Platelet Volume 9.9 fL (7.4-10.4); Platelet Count 195 thou/uL (130-400); RBC Distribution Width 15.4 % (11.5-14.5); White Blood Cell (WBC) Count 4.7 thou/uL (4.8-10.8)
[2022-05-01 11:41] LABS: INR-International Normal Ratio 1.1; PTT 35.5 sec (22.9-36.1); Prothrombin Time 14.4 sec (12.0-14.7)
[2022-05-01 11:46] LABS: ALT (SGPT) Less than 7 U/L (8-55); AST (SGOT) 11 U/L (5-34); Albumin 3.6 g/dL (3.4-4.8); Alkaline Phosphatase 80 U/L (40-110); Anion Gap 11 mmol/L (10-20); BUN (Urea Nitrogen) 17 mg/dL (9.8-20.1); Bilirubin, Total 0.3 mg/dL (0.2-1.2); Calc. Creatinine Clearance 0 mL/min (70-130); Calcium 9.3 mg/dL (7.8-10.44); Carbon Dioxide 27 mmol/L (23-31); Chloride 106 mmol/L (98-107); Estimated GFR 57; Globulin 3.1 g/dL (2.4-3.5); Glucose 104 mg/dL (83-110); Potassium 3.9 mmol/L (3.5-5.1); Protein, Total 6.7 g/dL (5.8-8.1); Sodium 140 mmol/L (136-145)
[2022-05-01] MEDS ORDERED: cefTRIAXone\\ROCEPHIN 2 GM VIAL ONE (12:07)
== END 2022-05-01 13:01 | disposition home or self-care (01) ==
LOC: ERS 10:30
DX: N30.01 Acute cystitis with hematuria (principal); F03.90 Unspecified dementia, unspecified severity, without behavioral disturbance, psychotic disturbance, mood disturbance, and anxiety; Z79.82 Long term (current) use of aspirin; Z79.899 Other long term (current) drug therapy
CPT/HCPCS: 36415; 51701; 80053; 81003; 81015; 82274; 85025; 85610; 85730; 87086; 94760; 96365; J0696

== ENCOUNTER 2022-06-19 11:24 | Emergency (ER) | payer SELFPAY ==
[2022-06-19 12:48] LABS: #Eosinphils 0.1 thou/uL (0.0-0.7); #Lymphocytes 1.3 thou/uL (1.20-3.40); #Monocytes 0.8 thou/uL (0.11-0.59); #Neutrophils 9.8 thou/uL (1.40-6.50); %Basophils 0.2 % (0.0-1.0); %Eosinophils 0.8 % (0.0-10.0); %Lymphocytes 10.7 % (21.0-51.0); %Monocytes 6.4 % (0.0-10.0); Mean Corpuscular HGB CONC 29.9 g/dL (32.0-36.0); Mean Corpuscular Hemoglobin 23.1 pg (27.0-31.0); Mean Corpuscular Volume 77.2 fl (78.0-98.0); Mean Platelet Volume 9.4 fL (7.4-10.4); Platelet Count 276 thou/uL (130-400); RBC Distribution Width 15.6 % (11.5-14.5); Red Blood Cell (RBC) Count 4.32 mill/uL (4.20-5.40); White Blood Cell (WBC) Count 11.9 thou/uL (4.8-10.8)
[2022-06-19 12:57] LABS: ALT (SGPT) 11 U/L (8-55); AST (SGOT) 13 U/L (5-34); Albumin 3.4 g/dL (3.4-4.8); Alkaline Phosphatase 77 U/L (40-110); Anion Gap 14 mmol/L (10-20); BUN (Urea Nitrogen) 16 mg/dL (9.8-20.1); Bilirubin, Total 0.3 mg/dL (0.2-1.2); Calc. Creatinine Clearance 0 mL/min (70-130); Calcium 9.6 mg/dL (7.8-10.44); Carbon Dioxide 25 mmol/L (23-31); Chloride 106 mmol/L (98-107); Estimated GFR 58; Globulin 3.8 g/dL (2.4-3.5); Glucose 98 mg/dL (83-110); Potassium 3.8 mmol/L (3.5-5.1); Protein, Total 7.2 g/dL (5.8-8.1); Sodium 141 mmol/L (136-145)
[2022-06-19 14:05] LABS: Bacteria/HPF 3+ HPF (None Seen); Bilirubin Negative (Negative); Blood, Urine Negative (Negative); Clarity Turbid (Clear); Glucose, Urine (Dipstick) Normal (Negative); Ketone, Urine Negative (Negative); Leukocyte 500 Leu/uL (Negative); Nitrite Negative (Negative); Protein, Urine (Dipstick) Negative (Neg-Trace); RBC/HPF 0-3 HPF (0-3); Specific Gravity, Urine 1.013 (1.002-1.036); Squamous Epithelial 0-3 HPF (0-3)
[2022-06-19] MEDS ORDERED: Cephalexin 250 MG CAP ONE ×2 (14:23→14:30)
== END 2022-06-19 15:20 ==
LOC: ERS 11:24
DX: D25.9 Leiomyoma of uterus, unspecified (principal); N39.0 Urinary tract infection, site not specified; I10 Essential (primary) hypertension; E03.9 Hypothyroidism, unspecified; Z79.899 Other long term (current) drug therapy; Z79.82 Long term (current) use of aspirin
CPT/HCPCS: 36415; 51701; 76856; 80053; 81003; 81015; 85025; 86850; 86900; 86901

== ENCOUNTER 2022-06-21 12:37 | Emergency (ER) | payer MEDICARE, SELFPAY ==
[2022-06-21 13:19] LABS: Hemoglobin 7.8 g/dL (12.0-16.0); Mean Corpuscular HGB CONC 31.3 g/dL (32.0-36.0); Mean Corpuscular Hemoglobin 24.2 pg (27.0-31.0); Mean Corpuscular Volume 77.1 fl (78.0-98.0); Mean Platelet Volume 10.1 fL (7.4-10.4); Platelet Count 222 thou/uL (130-400); RBC Distribution Width 15.7 % (11.5-14.5); Red Blood Cell (RBC) Count 3.23 mill/uL (4.20-5.40); White Blood Cell (WBC) Count 7.4 thou/uL (4.8-10.8)
[2022-06-21] MEDS ORDERED: Tranexamic Acid 1,000 MG/10 ML VIAL ONE (13:23)
[2022-06-21 13:28] LABS: ALT (SGPT) 13 U/L (8-55); AST (SGOT) 17 U/L (5-34); Albumin 3.2 g/dL (3.4-4.8); Alkaline Phosphatase 64 U/L (40-110); Anion Gap 13 mmol/L (10-20); BUN (Urea Nitrogen) 16 mg/dL (9.8-20.1); Bilirubin, Total 0.2 mg/dL (0.2-1.2); Calc. Creatinine Clearance 0 mL/min (70-130); Calcium 9.1 mg/dL (7.8-10.44); Carbon Dioxide 25 mmol/L (23-31); Chloride 108 mmol/L (98-107); Estimated GFR 60; Globulin 3.8 g/dL (2.4-3.5); Glucose 101 mg/dL (83-110); Potassium 4.1 mmol/L (3.5-5.1); Sodium 142 mmol/L (136-145)
[2022-06-21 13:28] LABS: INR-International Normal Ratio 1.1; Prothrombin Time 14.1 sec (12.0-14.7)
[2022-06-21] MEDS ORDERED: Tranexamic Acid 1,000 MG in Sodium Chloride 0.9% 250 ML 250 ML IVPB SCH (13:30)
[2022-06-21 13:33] LABS: Anisocytosis SLIGHT = 6-15 cells (100X) (0-5/hpf); Band 1 % (5-11); Hypochromia SLIGHT = 6-15 cells (100X) (0-5/hpf); Lymphocytes 22 % (21-51); MDiff Complete? YES; Microcytosis SLIGHT = 6-15 cells (100X) (0-5/hpf); Monocytes 4 % (0-10); Neutrophil 72 % (42-75); Ovalocytes SLIGHT = 2-5 cells (100X) (0-1/hpf); Platelet Morphology Comment Appears Adequate; Poikilocytosis SLIGHT = 6-15 cells (100X) (0-5/hpf); Polychromasia SLIGHT = 2-3 cells (100X) (0-2/hpf); Schistocytes SLIGHT = 2-5 cells (100X) (0-1/hpf); Target Cells SLIGHT = 2-5 cells (100X) (0-1/hpf); Tear Drops SLIGHT = 2-5 cells (100X) (0-1/hpf)
[2022-06-21 16:28] LABS: SARS-CoV-2 NAA Rapid Test Not Detected (NotDetected)
== END 2022-06-21 17:28 | disposition short-term general hospital (02) ==
LOC: ERS 12:37
DX: N93.9 Abnormal uterine and vaginal bleeding, unspecified (principal); D64.9 Anemia, unspecified; Z20.822 Contact with and (suspected) exposure to COVID-19
CPT/HCPCS: 36430; 80053; 85025; 85610; 85730; 86850; 86900; 86901; 86920; 94760; P9016; U0002; 93005; 96374; 96376; J7050

== ENCOUNTER 2022-06-30 14:28 | Emergency (ER) | payer MEDICAID, MEDICARE ==
[2022-06-30] MEDS ORDERED: Tranexamic Acid 650 MG TAB PO SCH (15:15)
== END 2022-06-30 18:44 ==
LOC: ERS 14:28
DX: N93.9 Abnormal uterine and vaginal bleeding, unspecified (principal); D25.9 Leiomyoma of uterus, unspecified
CPT/HCPCS: 99284

== ENCOUNTER 2022-07-06 13:53 | Emergency (ER) | payer MEDICARE ==
[2022-07-06 14:43] LABS: #Eosinphils 0.1 thou/uL (0.0-0.7); #Lymphocytes 1.5 thou/uL (1.20-3.40); #Monocytes 0.6 thou/uL (0.11-0.59); #Neutrophils 6.3 thou/uL (1.40-6.50); %Basophils 0.2 % (0.0-1.0); %Eosinophils 1.5 % (0.0-10.0); %Lymphocytes 17.6 % (21.0-51.0); %Monocytes 6.5 % (0.0-10.0); %Neutrophils 74.2 % (42.0-75.0); Hemoglobin 5.4 g/dL (12.0-16.0); Mean Corpuscular Hemoglobin 28.2 pg (27.0-31.0); Mean Corpuscular Volume 90.9 fl (78.0-98.0); Mean Platelet Volume 7.1 fL (7.4-10.4); Platelet Count 335 10x3/uL (130-400); RBC Distribution Width 20.7 % (11.5-14.5); Red Blood Cell (RBC) Count 1.91 mill/uL (4.20-5.40); White Blood Cell (WBC) Count 8.5 10x3/uL (4.8-10.8)
[2022-07-06] MEDS ORDERED: Tranexamic Acid 1,000 MG/10 ML VIAL ONE (14:50)
[2022-07-06 15:14] LABS: ALT (SGPT) 9 U/L (8-55); AST (SGOT) 11 U/L (5-34); Alkaline Phosphatase 60 U/L (40-110); Anion Gap 11 mmol/L (10-20); BUN (Urea Nitrogen) 13 mg/dL (9.8-20.1); Bilirubin, Total 0.2 mg/dL (0.2-1.2); Calc. Creatinine Clearance 0 mL/min (70-130); Calcium 8.8 mg/dL (7.8-10.44); Carbon Dioxide 24 mmol/L (23-31); Chloride 109 mmol/L (98-107); Estimated GFR 70; Globulin 2.7 g/dL (2.4-3.5); Glucose 102 mg/dL (83-110); Potassium 3.8 mmol/L (3.5-5.1); Protein, Total 5.7 g/dL (5.8-8.1); Sodium 140 mmol/L (136-145)
[2022-07-06 15:47] LABS: INR-International Normal Ratio 1.2; Prothrombin Time 15.2 sec (12.0-14.7)
[2022-07-06 15:49] LABS: PTT 34.2 sec (22.9-36.1)
== END 2022-07-06 17:08 | disposition short-term general hospital (02) ==
LOC: ERS 13:53
DX: D64.9 Anemia, unspecified (principal); E03.9 Hypothyroidism, unspecified; Z79.899 Other long term (current) drug therapy
CPT/HCPCS: 36430; 76856; 80053; 85025; 85610; 85730; 86850; 86900; 86901; 86920; 93005; P9016; 36415; 96374

== ENCOUNTER 2022-07-23 18:29 | Emergency (ER) | payer MEDICARE ==
[2022-07-23 19:14] LABS: #Eosinphils 0.1 thou/uL (0.0-0.7); #Lymphocytes 0.9 thou/uL (1.20-3.40); #Monocytes 0.4 thou/uL (0.11-0.59); %Basophils 0.4 % (0.0-1.0); %Eosinophils 0.6 % (0.0-10.0); %Lymphocytes 8.5 % (21.0-51.0); %Monocytes 4.3 % (0.0-10.0); %Neutrophils 86.3 % (42.0-75.0); Hemoglobin 8.4 g/dL (12.0-16.0); Mean Corpuscular HGB CONC 30.5 g/dL (32.0-36.0); Mean Corpuscular Hemoglobin 27.6 pg (27.0-31.0); Mean Corpuscular Volume 90.4 fl (78.0-98.0); Mean Platelet Volume 7.7 fL (7.4-10.4); Platelet Count 370 10x3/uL (130-400); RBC Distribution Width 17.2 % (11.5-14.5); Red Blood Cell (RBC) Count 3.04 mill/uL (4.20-5.40); White Blood Cell (WBC) Count 10.4 10x3/uL (4.8-10.8)
[2022-07-23 19:58] LABS: ALT (SGPT) 17 U/L (8-55); AST (SGOT) 35 U/L (5-34); Albumin 2.7 g/dL (3.4-4.8); Alkaline Phosphatase 77 U/L (40-110); Anion Gap 12 mmol/L (10-20); BUN (Urea Nitrogen) 12 mg/dL (9.8-20.1); Bilirubin, Total 0.3 mg/dL (0.2-1.2); Calc. Creatinine Clearance 0 mL/min (70-130); Calcium 8.5 mg/dL (7.8-10.44); Carbon Dioxide 23 mmol/L (23-31); Chloride 109 mmol/L (98-107); Estimated GFR 67; Globulin 3.7 g/dL (2.4-3.5); Glucose 199 mg/dL (83-110); Potassium 3.8 mmol/L (3.5-5.1); Protein, Total 6.4 g/dL (5.8-8.1); Sodium 140 mmol/L (136-145)
== END 2022-07-23 21:41 | disposition home or self-care (01) ==
LOC: ERS 18:29
DX: D64.9 Anemia, unspecified (principal); E03.9 Hypothyroidism, unspecified
CPT/HCPCS: 36415; 80053; 85025; 86850; 86900; 86901; 99284

== ENCOUNTER 2022-10-01 12:12 | Emergency (ER) | payer MEDICARE ==
[2022-10-01 12:58] LABS: #Basophils 0.1 thou/uL (0.0-0.2); #Eosinphils 0.2 thou/uL (0.0-0.7); #Lymphocytes 2.2 thou/uL (1.20-3.40); #Monocytes 0.6 thou/uL (0.11-0.59); #Neutrophils 6.8 thou/uL (1.40-6.50); %Basophils 0.6 % (0.0-1.0); %Eosinophils 1.8 % (0.0-10.0); %Lymphocytes 22.6 % (21.0-51.0); %Monocytes 6.2 % (0.0-10.0); %Neutrophils 68.8 % (42.0-75.0); Hemoglobin 10.3 g/dL (12.0-16.0); Mean Corpuscular HGB CONC 30.9 g/dL (32.0-36.0); Mean Corpuscular Hemoglobin 25.4 pg (27.0-31.0); Mean Corpuscular Volume 82.2 fl (78.0-98.0); Mean Platelet Volume 10.1 fL (7.4-10.4); Platelet Count 268 10x3/uL (130-400); RBC Distribution Width 17.3 % (11.5-14.5); Red Blood Cell (RBC) Count 4.05 mill/uL (4.20-5.40); White Blood Cell (WBC) Count 9.8 10x3/uL (4.8-10.8)
[2022-10-01 13:17] LABS: ALT (SGPT) 16 U/L (8-55); AST (SGOT) 18 U/L (5-34); Albumin 3.8 g/dL (3.4-4.8); Alkaline Phosphatase 67 U/L (40-110); Anion Gap 12 mmol/L (10-20); BUN (Urea Nitrogen) 18 mg/dL (9.8-20.1); Bilirubin, Total 0.2 mg/dL (0.2-1.2); Calc. Creatinine Clearance 0 mL/min (70-130); Calcium 9.9 mg/dL (7.8-10.44); Carbon Dioxide 22 mmol/L (23-31); Chloride 109 mmol/L (98-107); Estimated GFR 50; Globulin 3.9 g/dL (2.4-3.5); Glucose 87 mg/dL (83-110); Lipase 11 U/L (8-78); Magnesium 2.2 mg/dL (1.6-2.6); Potassium 3.8 mmol/L (3.5-5.1); Protein, Total 7.7 g/dL (5.8-8.1); Sodium 139 mmol/L (136-145)
[2022-10-01] MEDS ORDERED: Iopamidol 370 76% 100 ML VIAL ONE (14:48)
[2022-10-01 15:31] LABS: Bacteria/HPF 4+ HPF (None Seen); Bilirubin Negative (Negative); Blood, Urine Negative (Negative); Clarity Turbid (Clear); Glucose, Urine (Dipstick) Normal (Negative); Ketone, Urine Negative (Negative); Leukocyte 250 Leu/uL (Negative); Nitrite 2+ (Negative); Protein, Urine (Dipstick) 10 mg/dL (Neg-Trace); RBC/HPF 0-3 HPF (0-3); Specific Gravity, Urine 1.014 (1.002-1.036); Squamous Epithelial 0-3 HPF (0-3); Urobilinogen Normal mg/dL (Less than 2); WBC/HPF Greater than 50 HPF (0-3); pH, Urine 6.5 (5.0-9.0)
[2022-10-01 15:36] LABS: SARS-CoV-2 NAA Rapid Test Not Detected (NotDetected)
== END 2022-10-01 16:25 ==
LOC: ERS 12:12
DX: R55 Syncope and collapse (principal); J69.0 Pneumonitis due to inhalation of food and vomit; E86.0 Dehydration; Z20.822 Contact with and (suspected) exposure to COVID-19; Z79.82 Long term (current) use of aspirin
CPT/HCPCS: 71045; 74019; 74177; 83605; 83690; 83735; 84484; 85730; 87040; 87077; 87086; 87186; 93005; U0002; 36415; 80053; 81003; 81015; 84443; 85025; 96360; Q9967